=== PATIENT | male | born 1940 | race Caucasian/White ===

== ENCOUNTER → 2019-05-02 09:48 | Outpatient (BNVA) | payer OTHER, SELFPAY | PROVIDERS: Family Provider Family Medicine; PCP Family Medicine; Referring Provider Family Medicine; Visit Provider Psychiatry & Neurology Neurology | DX: G62.9 Polyneuropathy, unspecified (principal); M79.642 Pain in left hand; M79.641 Pain in right hand; Z87.891 Personal history of nicotine dependence; I25.10 Atherosclerotic heart disease of native coronary artery without angina pectoris; Z79.01 Long term (current) use of anticoagulants; Z79.899 Other long term (current) drug therapy | CPT/HCPCS: 80048; 83880; 95885; 95911 ==

== ENCOUNTER 2019-12-24 14:15 | Emergency (ER) | payer OTHER, SELFPAY ==
[2019-12-24 14:40] VITALS: BP 118/66; PULSE 78; RESP 18; TEMP 36.7; O2SAT 96; BMI 48.8
--- NOTE | 2019-12-24 14:59 | W.ED.SKABFB ---
HPI - Skin/Abscess/Foreign Bdy General: Chief complaint: Skin/Abscess/Foreign Body Stated complaint: NEEDLE IN FOOT Time Seen by Provider: 12/24/19 14:21 History of Present Illness: HPI narrative: 79-year-old male patient presents to the emergency department with onset of left foot foreign body. He reports got up in the middle of the night, found blood on the carpet this morning, suffers from peripheral neuropathy secondary to diabetes, he denies pain. Upon inspection, his stated she saw a needle in his foot, he reports currently sewing quilts. States his son and attempted to pull the needle out and not sure if all was retrieved. He reports some tenderness to the left foot. MD complaint: foreign body Onset (ago): hour(s) (24) Tetanus up to date: no Location: L foot Severity: mild Severity scale (1-10): 4 Quality: aching Relieving factors: immobilization and other (foot elevation) Exacerbating factors: other (ambulating) Associated symptoms: Reports no associated symptoms; Deny chills, fever(s), nausea or vomiting Treatments prior to arrival: bandages Review of Systems General: Reports: 10 or more systems reviewed and unremarkable except in HPI and below Const: Denies: fever(s), chills or diaphoresis Eyes: Denies: blurry vision or eye redness ENMT: Denies: throat pain, dental pain or disequilibrium Card: Denies: chest pain, palpitations or irregular heart rhythm Resp: Denies: dyspnea, productive cough, non-productive cough or wheezing GI: Denies: abdominal pain, nausea or vomiting : Denies: dysuria Musc: Reports: other (FB left foot); Denies: neck pain or back pain Skin/Breast: Denies: rash or pruritus Neuro: Denies: headache(s), weakness in extremities or behavioral changes Psych: Denies: anxiety or depression Hong/Lymph: Denies: easy bruising PFSH ED PFSH: Medical History (Updated 12/24/19 @ 16:35 by LUIS ALBERTO Bean) ASHD (arteriosclerotic heart disease) COPD (chronic obstructive pulmonary disease) Diabetes DVT (deep venous thrombosis) Fatty liver History of colon cancer Hyperlipidemia Hypertension Lumbar radiculopathy Metabolic disorder Neuropathy Obesity Onychomycosis Osteoarthritis Prostate cancer Sleep apnea Statin intolerance Surgical History History of hernia repair S/P arthroscopy of left shoulder Status post small bowel resection Family History Other Family history unknown Social History Smoking and tobacco status: former smoker Alcohol intake: never Physical Exam Const: COMMON NORMALS: no acute distress, patient oriented x3, healthy appearing and alert GENERAL APPEARANCE: cooperative, comfortable and well hydrated HENMT: COMMON NORMALS: normocephalic, Normal external nose present and moist oral mucous membranes HEAD & SCALP: normocephalic NOSE: Normal external nose present Eye: COMMON NORMALS: Equal, round and reactive pupils present and EOMs intact bilaterally GENERAL EYE: appearance normal, both eyes and all related structures PUPIL: Yes Equal, round and reactive pupils present Neck/C-Spine: COMMON NORMALS: full ROM and no lymphadenopathy GENERAL: Yes normal visual inspection and Yes trachea midline CERVICAL SPINE: Yes cervical ROM normal Lymph: LYMPHATIC: no lymphadenopathy noted Chest: COMMONS NORMALS: normal inspection of the chest Resp: COMMON NORMALS: normal respiratory effort and clear to auscultation bilaterally AUSCULTATION: clear to auscultation bilaterally Cardio: COMMON NORMALS: regular rhythm, S1 normal heart sound present, S2 normal heart sound present and Peripheral pulses 2+ throughout RHYTHM: regular rhythm HEART SOUNDS: S1 normal heart sound present and S2 normal heart sound present PERIPHERAL PULSES: Peripheral pulses 2+ throughout GI: COMMON NORMALS: Soft to palpation and non-tender INSPECTION: Yes normal to inspection PALPATION: Yes Soft to palpation : COMMON NORMALS: Yes no CVA tenderness BLADDER/KIDNEY EXAM: Yes no CVA tenderness Back/Pelvis: COMMON NORMALS: no CVA tenderness and thoracic and lumbar spine normal to inspection Extremity: COMMON NORMALS: normal to inspection and capillary refill normal GENERAL: Yes normal exam except as noted LEFT LOWER EXTREMITY: Yes foot & digits Left foot and digits: Yes inspection (left distal plantar b/t 2nd-3rd MTP - puncture wound noted), Yes palpation (small abrasion to the puncture site, + tenderness with palpation), Yes ROM (full dorsiflexion/extension of the left foot and ankle) and Yes neurovascular exam (distally intact) Neuro: COMMON NORMALS: patient oriented x3 and no focal motor deficits SENSORIUM/ORIENTATION: Yes alert Psych: COMMON NORMALS: mental status grossly normal, Normal thought process present and cooperative ACTIVITY/MOTOR BEHAVIOR: Yes appropriate eye contact THOUGHT PROCESS: Normal thought process present Skin: COMMON NORMALS: no rashes or lesions noted and turgor normal GENERAL SKIN EXAM: no rashes or lesions noted and turgor normal Course ED course: 79 year old male present with FB left foot - call to Dr Briceno, advised patient to come straight to the clinic for I & D - discussed with patient plan of care - reports will go straight to the clinic so FB can be removed. Aware risk of infection is high and must be followed by podiatry - verbalized understanding. Consultations: Consultation #1: Dr Briceno, podiatry, back with Dr. Briceno in regards to foreign body to the left plantar foot, x-ray results discussed, he advised patient to have colon screening, will be sent to his office for outpatient incision and drainage of the site. Patient remains on anticoagulation, serology testing/coagulation testing deferred at this time. COVID screening requested prior to discharge to the clinic. Time: 16:06 Vital Signs: Vital signs: Vital Signs Temperature 98.0 F 12/24/19 14:40 Pulse Rate 78 12/24/19 14:40 Respiratory Rate 18 12/24/19 14:40 Blood Pressure 118/66 12/24/19 14:40 Pulse Oximetry 96 12/24/19 14:40 MDM - Skin/Abscess/Foreign Bdy Imaging Data^: Xray Ortho: Radiologist's impression: [place] [address] XRay Report Signed Patient: Gage Hampton Unit #: [id number] : 1940 Age/Sex: 79 / M ADM Date: 12/24/19 Loc: ER Room/Bed: Attending Dr: Ordering Provider/Ordering MD: Dot Mcdonald Date of Service: 12/24/19 Procedure(s): XR foot LT min 3V* [id number] Accession Number(s): [id number] Report Number: [id number] PROCEDURE INFORMATION: Exam: XR Left Foot Complete Exam date and time: 12/24/2019 3:28 PM Age: 79 years old Clinical indication: Injury or trauma; Other: Needle in foot; Puncture; Left; With foreign body TECHNIQUE: Imaging protocol: XR Left foot. Views: 3 or more views. COMPARISON: No relevant prior studies available. FINDINGS: Bones/joints: Negative for acute bony abnormality. A bone spurs present on the inferior calcaneus. Soft tissues: There are 3 metallic needle fragments in the plantar surface of the foot inferior to the proximal 2nd digit. These findings are consistent with soft tissue foreign bodies. There is mild soft tissue edema in the dorsal aspect of the foot. XR/XR foot LT min 3V* [id number] IMPRESSION: 1. Metallic needle fragments are present in the plantar surface of the foot 2. No acute bone abnormality. 3. Bone spur inferior calcaneus 4. Mild soft tissue edema dorsal foot Dictated By: Sammy Singh Signed By: Sammy Singh Signed Date/Time: 12/24/191543 DD/ 41 Discharge Plan Discharge Patient Disposition: Home Clinical Impression: Foreign body granuloma of soft tissue of left foot Acute foot pain Qualifiers: Laterality: left Qualified Code(s): M79.672 - Pain in left foot Condition: Stable Prescriptions: No Action metoprolol tartrate 50 mg tablet 50 mg PO BID RF: 0 levothyroxine 50 mcg capsule 50 mcg PO QDAY RF: 0 gabapentin 300 mg capsule 600 mg PO TID RF: 0 glipizide 10 mg tablet 10 mg PO BID RF: 0 polyethylene glycol 3350 [Miralax] 17 gram/dose powder 17 gm PO QDAY RF: 0 diclofenac sodium [Voltaren] 1 % gel 4 gm TOPICAL QID RF: 0 clopidogrel 75 mg tablet 75 mg PO QDAY RF: 0 Biotin Plus-Calcium and Vit D3 200-450-400 mg-mcg-unit tablet PO .twice a day RF: 0 hydralazine 10 mg tablet 10 mg PO TID RF: 0 ranolazine [Ranexa] 500 mg tablet extended release 12 hr 500 mg PO BID RF: 0 magnesium L-lactate 84 mg tablet extended release 84 mg PO BID RF: 0 aspirin [Adult Low Dose Aspirin] 81 mg tablet,delayed release (DR/EC) 81 mg PO QDAY RF: 0 nitroglycerin [Nitrostat] 0.4 mg tablet, sublingual 0.4 mg SUBLINGUAL Q5M PRNRF: 0 pravastatin 80 mg tablet 40 mg PO QDAY RF: 0 warfarin 2 mg tablet 6 mg PO QDAY RF: 0 isosorbide mononitrate 60 mg tablet extended release 24 hr 30 mg PO QDAY RF: 0 sulfamethoxazole-trimethoprim [Bactrim DS] 800-160 mg tablet 1 tab PO Q12H Qty: 14 RF: 0 amoxicillin-pot clavulanate [Augmentin] 875-125 mg tablet 1 tab PO Q12H Qty: 14 RF: 0 furosemide 80 mg tablet 80 mg PO QAM Qty: 90 RF: 3 Discharge Orders: Discharge Order (Routine); Ordered 12/24/19 Ordered By: Dot Mcdonald Referrals: Keven Marcus [Primary Care Provider] - Discharge Diet: Diabetic Discharge Activity: Limit activity as instructed Patient Instructions: Soft Tissue Foreign Body (ED), Puncture Wound (ED) Activity Restrictions/Additional Instructions: Go directly to Dr. Briceno's office to see as soon as you are discharged Keep the left foot elevated to help with pain and swelling If you are prescribed antibiotics, take until all gone Return to the emergency department if you develop red streaking of the left foot, fever, chills or increased leg/foot pain Discharge Date/Time: 12/24/19 16:44 Coding Level of Care Code ED Geothermal Hvac Technician for Kathleen Fwhenry Exam Comprehensive
[2019-12-24] MEDS: tetanus-dipt-pertussis 0.5 mL SDV IM (15:52)
[2019-12-26 12:22] LABS: Quest SARS-CoV-2 RNA NOT DETECTED (NOT DETECTED)
--- NOTE | 2019-12-26 16:52 | PC.NURSE ---
Pt admitted on 12/26/19, called the floor to contact pt regarding COVID results.
== END 2019-12-24 16:44 | disposition home or self-care (01) ==
PROVIDERS: Emergency Provider Nurse Practitioner Family; Family Provider Family Medicine; PCP Family Medicine
DX: M60.272 Foreign body granuloma of soft tissue, not elsewhere classified, left ankle and foot (principal); Z18.9 Retained foreign body fragments, unspecified material; Z79.01 Long term (current) use of anticoagulants; Z79.84 Long term (current) use of oral hypoglycemic drugs; Z79.02 Long term (current) use of antithrombotics/antiplatelets; Z79.82 Long term (current) use of aspirin; J44.9 Chronic obstructive pulmonary disease, unspecified; E11.40 Type 2 diabetes mellitus with diabetic neuropathy, unspecified; Z85.038 Personal history of other malignant neoplasm of large intestine; E78.5 Hyperlipidemia, unspecified; I10 Essential (primary) hypertension; Z85.46 Personal history of malignant neoplasm of prostate; Z87.891 Personal history of nicotine dependence; Z23 Encounter for immunization
CPT/HCPCS: 12345; 73620; 73630; 87070; 87205; 87635; 90471; 90715; 99282; 99283

== ENCOUNTER 2019-12-26 09:11 | Inpatient (IN) | payer OTHER, MEDICARE, SELFPAY ==
[2019-12-26] VITALS (8 sets, daily range): BP systolic 124–165; BP diastolic 72–115; PULSE 80–89; RESP 18; TEMP 36.8–37.3; O2SAT 92–95; BMI 48.8
--- NOTE | 2019-12-26 09:29 | W.ED.GENADLT ---
Documented by User: DANNY Damon 12/26/19 09:50 HPI - General Adult General: Chief complaint: Extremity Injury, Lower Stated complaint: LEFT LEG INFECTION Time Seen by Provider: 12/26/19 09:27 History of Present Illness: HPI narrative: Patient presents here to the ER from Dr. Briceno's office for referral for admission for IV antibiotics due to cellulitis. Patient is diabetic has complete neuropathy and had fragments removed from his foot 2 days ago and then had final fragment removed today has an abscess develop now cellulitis extending to the dorsum of the foot and up the anterior left leg needs to be admitted for empiric therapy per Dr. Goodman PHILLIPS complaint: Diabetic and cellulitis Onset (ago): day(s) Location: lower extremity Radiation: extremity Severity: moderate Relieving factors: none Associated symptoms: Deny chest pain, dyspnea, headache(s), nausea, rash or vomiting Treatments prior to arrival: other (Medicine) Review of Systems Const: Denies: fever(s), chills or body aches Eyes: Denies: change in vision or blurry vision ENMT: Denies: throat pain or nasal congestion Card: Denies: chest pain or dyspnea on exertion Resp: Denies: dyspnea, productive cough or non-productive cough GI: Denies: abdominal pain, nausea or vomiting : Denies: difficulty urinating Musc: Reports: extremity swelling; Denies: extremity pain (Left lower extremity is had 3 sewing needle pieces removed out his foot last [address] Briceno said he got the last 1 out today patient has developed an abscess and now is got swelling stent of into his anterior left leg) Skin/Breast: Denies: rash Neuro: Denies: headache(s) Psych: Denies: anxiety or depression Hong/Lymph: Denies: easy bruising PFSH ED PFSH: Medical History ASHD (arteriosclerotic heart disease) COPD (chronic obstructive pulmonary disease) Diabetes DVT (deep venous thrombosis) Fatty liver History of colon cancer Hyperlipidemia Hypertension Lumbar radiculopathy Metabolic disorder Neuropathy Obesity Onychomycosis Osteoarthritis Prostate cancer Sleep apnea Statin intolerance Surgical History History of hernia repair S/P arthroscopy of left shoulder Status post small bowel resection Family History Other Family history unknown Social History Smoking and tobacco status: former smoker Alcohol intake: never Physical Exam Const: COMMON NORMALS: no acute distress, average body habitus and patient oriented x3 HENMT: COMMON NORMALS: normocephalic HEAD & SCALP: normal to inspection and normocephalic FACE & SINUS: normal facial exam Eye: COMMON NORMALS: conjunctivae normal GENERAL EYE: appearance normal, both eyes and all related structures CONJUNCTIVA: Yes conjunctivae normal Neck/C-Spine: COMMON NORMALS: no JVD Chest: COMMONS NORMALS: normal inspection of the chest Resp: COMMON NORMALS: normal respiratory effort and clear to auscultation bilaterally AUSCULTATION: clear to auscultation bilaterally and diminished lung sounds Cardio: COMMON NORMALS: no JVD, regular rate and regular rhythm RATE: regular rate RHYTHM: regular rhythm GI: COMMON NORMALS: Normal to inspection, nondistended, normoactive bowel sounds present Extremity: COMMON NORMALS: full ROM LEFT LOWER EXTREMITY: Yes lower leg (Redness to anterior tibial aspect Dr. Briceno has placed a edith on it and around the redness) and Yes ankle joint OTHER: Left ankle foot is wrapped per Dr. Briceno who I indeed the foot today removed a piece of metal Neuro: COMMON NORMALS: patient oriented x3 Course Vital Signs: Vital signs: Vital Signs Temperature 97.5 F L 12/29/19 04:00 Pulse Rate 73 12/29/19 04:00 Respiratory Rate 18 12/29/19 04:00 Blood Pressure 153/85 12/29/19 04:00 Pulse Oximetry 94 12/29/19 04:00 MDM - General Adult MDM Narrative: Medical decision making narrative: I received report from Dr. Briceno says 79-year old diabetic male with complete neuropathy left foot is on Bactrim and Augmentin as an outpatient 3 days ago had 2 piece of metal removed from his foot and Dr. Briceno removed another piece today patient has developed an abscess despite being on antibiotics now has redness extending up to anterior aspect of the foot he would like for him to be admitted for IV antibiotics and then have an MRI during for a deep abscess evaluation Lab Data: Labs: Lab Results 12/26/19 12/26/19 12/26/19 Range/Units 09:49 09:49 09:49 WBC 13.6 H (4.0-10.0) 10^3/ uL RBC 5.22 (4.1-5.3) 10^6/u L Hgb 16.4 (11.7-16.6) g/dL Hct 49.0 (42.0-52.0) % MCV 93.9 (80-94) fL MCH 31.4 (28.0-34.0) pg MCHC 33.5 (30.0-36.0) g/dL RDW 13.9 (12.1-15.1) % Plt Count 177 (130-400) 10^3/c mm MPV 11.0 H (7.4-10.4) fL Neut % (Auto) 77.6 % Lymph % (Auto) 13.8 % [place] % (Auto) 7.6 % Eos % (Auto) 0.3 % Baso % (Auto) 0.3 % Neut # (Auto) 10.54 H (1.8-7.7) 10^3/u L Lymph # (Auto) 1.9 (0.8-4.8) 10^3/u L [place] # (Auto) 1.0 H (0.2-0.9) 10^3/u L Eos # (Auto) 0.0 (0.0-0.8) 10^3/u L Baso # (Auto) 0.0 (0.0-0.1) 10^3/u L Nucleated RBC % (a uto) 0 % Nucleated RBCs # 0.0 /100WBC PT 28.80 H (12.1-14.9) SECO NDS INR 2.60 H (0.8-1.2) Sodium 131 L (136-145) mmol/L Potassium 4.1 (3.5-5.1) mmol/L Chloride 99 (98-107) mmol/L Carbon Dioxide 22 (22-29) mmol/L Anion Gap 14.1 (5-19) BUN 21 (8-23) mg/dL Creatinine 1.6 H (0.7-1.2) mg/dL GFR Calculation Not Reportable Glucose 180 H (65-115) mg/dL Estimat Average Gl ucose Hemoglobin A1c (4.0-6.0) % Calculated Osmolal ity 280 L (285-295) mOsm/k g Lactate (0.5-2.2) mmol/L Calcium 8.8 (8.5-10.5) mg/dL Total Bilirubin 0.9 (0.15-1.2) mg/dL AST 13 (0-40) U/L ALT 14 (0-41) U/L Alkaline Phosphata se 63 (40-130) IU/L Total Protein 7.2 (6.6-8.7) g/dL Albumin 3.7 (3.5-5.2) g/dL Globulin 3.5 (1.3-4.6) g/dL SARS-CoV-2 Ag (Rap id) (Negative) 12/26/19 12/26/19 12/26/19 Range/Units 09:49 09:49 10:17 WBC (4.0-10.0) 10^3/ uL RBC (4.1-5.3) 10^6/u L Hgb (11.7-16.6) g/dL Hct (42.0-52.0) % MCV (80-94) fL MCH (28.0-34.0) pg MCHC (30.0-36.0) g/dL RDW (12.1-15.1) % Plt Count (130-400) 10^3/c mm MPV (7.4-10.4) fL Neut % (Auto) % Lymph % (Auto) % [place] % (Auto) % Eos % (Auto) % Baso % (Auto) % Neut # (Auto) (1.8-7.7) 10^3/u L Lymph # (Auto) (0.8-4.8) 10^3/u L [place] # (Auto) (0.2-0.9) 10^3/u L Eos # (Auto) (0.0-0.8) 10^3/u L Baso # (Auto) (0.0-0.1) 10^3/u L Nucleated RBC % (a uto) % Nucleated RBCs # /100WBC PT (12.1-14.9) SECO NDS INR (0.8-1.2) Sodium (136-145) mmol/L Potassium (3.5-5.1) mmol/L Chloride (98-107) mmol/L Carbon Dioxide (22-29) mmol/L Anion Gap (5-19) BUN (8-23) mg/dL Creatinine (0.7-1.2) mg/dL GFR Calculation Glucose (65-115) mg/dL Estimat Average Gl ucose 126 Hemoglobin A1c 6.0 (4.0-6.0) % Calculated Osmolal ity (285-295) mOsm/k g Lactate 1.7 (0.5-2.2) mmol/L Calcium (8.5-10.5) mg/dL Total Bilirubin (0.15-1.2) mg/dL AST (0-40) U/L ALT (0-41) U/L Alkaline Phosphata se (40-130) IU/L Total Protein (6.6-8.7) g/dL Albumin (3.5-5.2) g/dL Globulin (1.3-4.6) g/dL SARS-CoV-2 Ag (Rap id) Negative (Negative) Discharge Plan Discharge Patient Disposition: Admitted As Inpatient Admit Provider: Denise Murcia Clinical Impression: Cellulitis, Diabetic peripheral neuropathy associated with type 2 diabetes mellitus, ASHD (arteriosclerotic heart disease), Diabetes, Hypertension Condition: Stable Interventions: ED Discharge Assessment Last Done: 12/26/19 14:49 ED Charges Last Done: 12/26/19 14:49 Discharge Date/Time: 12/26/19 15:09 Sign Out Sign Out Data: Patient Sign Out occurred on 12/26/19 at 13:53. Patient's care was discussed, and care was transferred from to Denny Douglas DO. 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 [employer]g Fwd Exam Comprehensive Documented by User: Denny Douglas DO 12/29/19 05:34 HPI - General Adult General: Chief complaint: Extremity Injury, Lower Stated complaint: LEFT LEG INFECTION Time Seen by Provider: 12/26/19 09:27 REPLACED BY [facility] ED PFSH: Medical History ASHD (arteriosclerotic heart disease) COPD (chronic obstructive pulmonary disease) Diabetes DVT (deep venous thrombosis) Fatty liver History of colon cancer Hyperlipidemia Hypertension Lumbar radiculopathy Metabolic disorder Neuropathy Obesity Onychomycosis Osteoarthritis Prostate cancer Sleep apnea Statin intolerance Surgical History History of hernia repair S/P arthroscopy of left shoulder Status post small bowel resection Family History Other Family history unknown Social History Smoking and tobacco status: former smoker Alcohol intake: never Course Vital Signs: Vital signs: Vital Signs Temperature 97.5 F L 12/29/19 04:00 Pulse Rate 73 12/29/19 04:00 Respiratory Rate 18 12/29/19 04:00 Blood Pressure 153/85 12/29/19 04:00 Pulse Oximetry 94 12/29/19 04:00 MDM - General Adult MDM Narrative: Medical decision making narrative: Reviewed with FILI Damon. Patient will be admitted for IV antibiotics popsicles surgical debridement. Discussed with hospitalist they will accept orders are written. Lab Data: Labs: Lab Results 12/26/19 12/26/19 12/26/19 Range/Units 09:49 09:49 09:49 WBC 13.6 H (4.0-10.0) 10^3/ uL RBC 5.22 (4.1-5.3) 10^6/u L Hgb 16.4 (11.7-16.6) g/dL Hct 49.0 (42.0-52.0) % MCV 93.9 (80-94) fL MCH 31.4 (28.0-34.0) pg MCHC 33.5 (30.0-36.0) g/dL RDW 13.9 (12.1-15.1) % Plt Count 177 (130-400) 10^3/c mm MPV 11.0 H (7.4-10.4) fL Neut % (Auto) 77.6 % Lymph % (Auto) 13.8 % [place] % (Auto) 7.6 % Eos % (Auto) 0.3 % Baso % (Auto) 0.3 % Neut # (Auto) 10.54 H (1.8-7.7) 10^3/u L Lymph # (Auto) 1.9 (0.8-4.8) 10^3/u L [place] # (Auto) 1.0 H (0.2-0.9) 10^3/u L Eos # (Auto) 0.0 (0.0-0.8) 10^3/u L Baso # (Auto) 0.0 (0.0-0.1) 10^3/u L Nucleated RBC % (a uto) 0 % Nucleated RBCs # 0.0 /100WBC PT 28.80 H (12.1-14.9) SECO NDS INR 2.60 H (0.8-1.2) Sodium 131 L (136-145) mmol/L Potassium 4.1 (3.5-5.1) mmol/L Chloride 99 (98-107) mmol/L Carbon Dioxide 22 (22-29) mmol/L Anion Gap 14.1 (5-19) BUN 21 (8-23) mg/dL Creatinine 1.6 H (0.7-1.2) mg/dL GFR Calculation Not Reportable Glucose 180 H (65-115) mg/dL Estimat Average Gl ucose Hemoglobin A1c (4.0-6.0) % Calculated Osmolal ity 280 L (285-295) mOsm/k g Lactate (0.5-2.2) mmol/L Calcium 8.8 (8.5-10.5) mg/dL Total Bilirubin 0.9 (0.15-1.2) mg/dL AST 13 (0-40) U/L ALT 14 (0-41) U/L Alkaline Phosphata se 63 (40-130) IU/L Total Protein 7.2 (6.6-8.7) g/dL Albumin 3.7 (3.5-5.2) g/dL Globulin 3.5 (1.3-4.6) g/dL SARS-CoV-2 Ag (Rap id) (Negative) 12/26/19 12/26/19 12/26/19 Range/Units 09:49 09:49 10:17 WBC (4.0-10.0) 10^3/ uL RBC (4.1-5.3) 10^6/u L Hgb (11.7-16.6) g/dL Hct (42.0-52.0) % MCV (80-94) fL MCH (28.0-34.0) pg MCHC (30.0-36.0) g/dL RDW (12.1-15.1) % Plt Count (130-400) 10^3/c mm MPV (7.4-10.4) fL Neut % (Auto) % Lymph % (Auto) % [place] % (Auto) % Eos % (Auto) % Baso % (Auto) % Neut # (Auto) (1.8-7.7) 10^3/u L Lymph # (Auto) (0.8-4.8) 10^3/u L [place] # (Auto) (0.2-0.9) 10^3/u L Eos # (Auto) (0.0-0.8) 10^3/u L Baso # (Auto) (0.0-0.1) 10^3/u L Nucleated RBC % (a uto) % Nucleated RBCs # /100WBC PT (12.1-14.9) SECO NDS INR (0.8-1.2) Sodium (136-145) mmol/L Potassium (3.5-5.1) mmol/L Chloride (98-107) mmol/L Carbon Dioxide (22-29) mmol/L Anion Gap (5-19) BUN (8-23) mg/dL Creatinine (0.7-1.2) mg/dL GFR Calculation Glucose (65-115) mg/dL Estimat Average Gl ucose 126 Hemoglobin A1c 6.0 (4.0-6.0) % Calculated Osmolal ity (285-295) mOsm/k g Lactate 1.7 (0.5-2.2) mmol/L Calcium (8.5-10.5) mg/dL Total Bilirubin (0.15-1.2) mg/dL AST (0-40) U/L ALT (0-41) U/L Alkaline Phosphata se (40-130) IU/L Total Protein (6.6-8.7) g/dL Albumin (3.5-5.2) g/dL Globulin (1.3-4.6) g/dL SARS-CoV-2 Ag (Rap id) Negative (Negative) Discharge Plan Discharge Patient Disposition: Admitted As Inpatient Admit Provider: Denise Murcia Clinical Impression: Cellulitis, Diabetic peripheral neuropathy associated with type 2 diabetes mellitus, ASHD (arteriosclerotic heart disease), Diabetes, Hypertension Condition: Stable Interventions: ED Discharge Assessment Last Done: 12/26/19 14:49 ED Charges Last Done: 12/26/19 14:49 Discharge Date/Time: 12/26/19 15:09 Sign Out Sign Out Data: Patient Sign Out occurred on 12/26/19 at 13:53. Patient's care was discussed, and care was transferred from to Denny Douglas DO. 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
[2019-12-26 09:59] LABS: Basophils % 0.3 %; Eosinophils % 0.3 %; Hemoglobin 16.4 g/dL (11.7-16.6); Lymphocytes # 1.9 10^3/uL (0.8-4.8); Lymphocytes % 13.8 %; Mean Corpuscular HGB Conc 33.5 g/dL (30.0-36.0); Mean Corpuscular Hemoglobin 31.4 pg (28.0-34.0); Mean Corpuscular Volume 93.9 fL (80-94); Monocytes % 7.6 %; Neutrophils # 10.54 10^3/uL (1.8-7.7); Neutrophils % 77.6 %; Nucleated Red Blood Cells % 0 %; Platelet Count 177 10^3/cmm (130-400); Red Blood Count 5.22 10^6/uL (4.1-5.3); Red Cell Distribution Width 13.9 % (12.1-15.1); White Blood Count 13.6 10^3/uL (4.0-10.0)
[2019-12-26 10:19] LABS: Lactate (Lactic Acid level) 1.7 mmol/L (0.5-2.2)
[2019-12-26] MEDS: sodium chloride 0.9% 1,000 ML 75 ML IV (10:19)
[2019-12-26 10:22] LABS: Alanine Aminotransferase 14 U/L (0-41); Albumin Level 3.7 g/dL (3.5-5.2); Alkaline Phosphatase 63 IU/L (40-130); Anion Gap 14.1 (5-19); Aspartate Amino Transferase 13 U/L (0-40); Blood Urea Nitrogen 21 mg/dL (8-23); Calcium 8.8 mg/dL (8.5-10.5); Carbon Dioxide 22 mmol/L (22-29); Chloride 99 mmol/L (98-107); Globulin 3.5 g/dL (1.3-4.6); Glucose 180 mg/dL (65-115); Osmolality Calculated 280 mOsm/kg (285-295); Potassium 4.1 mmol/L (3.5-5.1); Sodium 131 mmol/L (136-145); Total Bilirubin 0.9 mg/dL (0.15-1.2); Total Protein 7.2 g/dL (6.6-8.7)
[2019-12-26 11:31] LABS: SARS Covid-2 Antigen Negative (Negative)
--- NOTE | 2019-12-26 11:55 | XR_ITS ---
WS: [id number] Portable AP upright chest, 12/26/2019 Clinical Data: cellulitis Comparison: Portable chest, 11/19/2018. Findings: No nodules, masses or effusions are seen. The heart is enlarged. The pulmonary vascularity is not increased. No pneumonia or pneumothorax is seen. The aortic arch and descending aorta show teresa cification and tortuosity. There is blunting of both costophrenic angles unchanged. XR/XR chest 1V portable [id number] Impression: Atherosclerosis and cardiomegaly.
--- NOTE | 2019-12-26 11:55 | ECG_ITS ---
[facility] Test Date: 2019-12-26 Pat Name: Gage Hampton Department: Room: Gender: Male Wellness Consultant: : 1940 Requested By: Stephen Rosa Order Number: [id number] Zaria MD: Brii Haas M.D. Measurements Intervals [place] Rate: 92 P: PA: -1 QRS: 95 QRSD: 114 T: 52 QT: 374 QTc: 463 Interpretive Statements ATRIAL FIBRILLATION BORDERLINE RIGHT AXIS DEVIATION [QRS AXIS > 90] MODERATE INTRAVENTRICULAR CONDUCTION DELAY [110+ ms QRS DURATION] Compared to ECG 11/19/2018 19:03:33 Intraventricular conduction delay now present Electronically Signed On 12-26-2019 17:53:59 CDT by Brii Haas M.D. [id number]
[2019-12-26] MEDS: levofloxacin-dextrose 5 % 500 MG/100 ML PREMIX 100 MG IV (12:38)
[2019-12-26] MEDS: sodium chloride 0.9% 1,000 ML 100 ML IV (16:12)
--- NOTE | 2019-12-26 16:14 | P.HP_ITS ---
Providers/Chief Complaint Admitting Physician: Denise Murcia MD Primary Care Provider: Keven Marcus Chief Complaint: LEFT LEG INFECTION History of Present Illness Gage Hampton is a 79 year old male with PMH CAD s/p PCI in 2005, 2012 and 2018, COPD on home O2, diabetes mellitus, hyperlipidemia, history of colon cancer, hypertension, hypothyroidism, peripheral neuropathy, obesity, osteoarthritis, prostate cancer, sleep apnea who developed left foot injury after stepping on a needle on December 23. He presented to see Dr. Briceno on the same date and a large body was removed in 2 places. Also started on Augmentin and Bactrim for cellulitis. Went back and had increased, cellulitis of the left dorsal forefoot which was extended into the left anterior leg. The remaining part of the needle was removed today. Sent for Gram stain and culture. No remaining foreign body appreciated. He was referred to the ER as he failed outpatient antibiotics and to get an MRI to establish depth of infection and to rule out any underlying deep abscesses. Review of Systems General: Reports: 10 or more systems reviewed and unremarkable except in HPI and below Const: Denies: fever(s), chills or body aches Eyes: Denies: change in vision, blurry vision or photophobia ENMT: Reports: hoarseness; Denies: throat pain, enlarged tonsils, odynophagia or nasal congestion Card: Denies: chest pain, palpitations, irregular heart rhythm, edema, swelling of feet/ankles, lightheadedness, pre-syncope, dyspnea on exertion or orthopnea Resp: Denies: dyspnea, productive cough, non-productive cough, wheezing, stridor, pain on inspiration, change in phlegm color, hemoptysis or chest conges tion GI: Denies: abdominal pain, nausea, vomiting, hematemesis, coffee ground emesis, dysphagia, heartburn, diarrhea, constipation, GI cramping, change in stool character, hematochezia or melena : Denies: flank pain, dysuria, urinary frequency, urinary urgency, urinary hesitancy or hematuria Musc: Denies: neck pain, back pain, extremity pain, joint swelling, joint warmth or deformity Neuro: Denies: headache(s), numbness in extremities, weakness in extremities, sensory changes, difficulty walking, frequent falls, dizziness, vertigo, behavioral changes, Slurred speech present or seizure-like activity Psych: Denies: anxiety, depression, suicidal ideation or homicidal ideation Endo: Denies: polyuria, polydipsia, tired all the time, cold intolerance or hot flashes Hong/Lymph: Denies: easy bruising or easy bleeding Medications/Allergies Home Medications Medication Instructions Recorded Confirmed Last Taken Type aspirin 81 mg tablet,delayed 81 mg PO DAILY 03/27/19 12/26/19 12/26/19 History release clopidogrel 75 mg tablet 75 mg PO DAILY 03/27/19 12/26/19 12/25/19 History diclofenac sodium 1 % topical gel 4 gm TOPICAL QID 03/27/19 12/26/19 Unknown History gabapentin 300 mg capsule 600 mg PO TID cap 03/27/19 12/26/19 12/26/19 History glipizide 10 mg tablet 10 mg PO BID 03/27/19 12/26/19 12/26/19 History hydralazine 10 mg tablet 10 mg PO TID 03/27/19 12/26/19 12/26/19 History isosorbide mononitrate 60 mg 30 mg PO DAILY tab 03/27/19 12/26/19 12/26/19 History tablet,extended release 24 hr levothyroxine 50 mcg capsule 50 mcg PO DAILY 03/27/19 12/26/19 Unknown History magnesium L-lactate 84 mg 84 mg PO BID 03/27/19 12/26/19 12/26/19 History tablet,extended release metoprolol tartrate 50 mg tablet 50 mg PO BID 03/27/19 12/26/19 12/26/19 History [id number]-[id number] 200 1 tab PO BID tab 03/27/19 12/26/19 12/26/19 History mg-biotin 450 mcg-vit D3 400 unit-FA tablet nitroglycerin 0.4 mg sublingual 0.4 mg SUBLINGUAL Q5M PRN 03/27/19 12/26/19 Unknown History tablet polyethylene glycol 3350 17 17 gm PO DAILY 03/27/19 12/26/19 12/25/19 History gram/dose oral powder pravastatin 80 mg tablet 40 mg PO DAILY tab 03/27/19 12/26/19 12/25/19 History ranolazine 500 mg tablet,extended 500 mg PO BID 03/27/19 12/26/19 12/26/19 History release,12 hr warfarin 2 mg tablet 6 mg PO DAILY tab 03/27/19 12/26/19 12/26/19 History furosemide 80 mg tablet 80 mg PO QAM #90 tab 05/27/19 12/26/19 12/26/19 Rx amoxicillin 875 mg-potassium 1 tab PO Q12H #14 tab 12/24/19 12/26/19 12/26/19 Rx clavulanate 125 mg tablet cholecalciferol (vitamin D3) 50 mcg PO DAILY 12/26/19 12/26/19 12/26/19 History [Vitamin D3] duloxetine 40 mg PO DAILY 12/26/19 12/26/19 12/25/19 History empagliflozin [Jardiance] 12.5 mg PO DAILY 12/26/19 12/26/19 12/26/19 History ferrous gluconate 324 mg PO DAILY 12/26/19 12/26/19 12/26/19 History omeprazole 20 mg PO DAILY 12/26/19 12/26/19 12/26/19 History Allergies Allergy/AdvReac Type Severity Reaction Status Date / Time lovastatin Allergy Unknown unknown Verified 12/26/19 08:02 metformin Allergy Unknown diarrhea Verified 12/26/19 08:02 rosuvastatin [From Crestor] Allergy Unknown unknown Verified 12/26/19 08:02 PFSH Acute PFSH: Medical History ASHD (arteriosclerotic heart disease) COPD (chronic obstructive pulmonary disease) Diabetes DVT (deep venous thrombosis) Fatty liver History of colon cancer Hyperlipidemia Hypertension Lumbar radiculopathy Metabolic disorder Neuropathy Obesity Onychomycosis Osteoarthritis Prostate cancer Sleep apnea Statin intolerance Surgical History History of hernia repair S/P arthroscopy of left shoulder Status post small bowel resection Family History Other Family history unknown Social History Smoking and tobacco status: former smoker Alcohol intake: never Vitals/I&O/Wt Last Vital Signs Temp 99.2 F 12/26/19 16:00 Pulse 87 12/26/19 16:00 Resp 18 12/26/19 16:00 BP 147/87 12/26/19 16:00 Pulse Ox 92 12/26/19 16:00 Weight last 48 hrs Weight 158.757 kg Physical Exam Const: COMMON NORMALS: no acute distress, average body habitus, patient oriented x3, no limitations, healthy appearing, alert and well nourished HENMT: COMMON NORMALS: normocephalic and atraumatic HEAD & SCALP: normocephalic and atraumatic Eye: COMMON NORMALS: Equal, round and reactive pupils present, EOMs intact bilaterally, conjunctivae normal and no scleral icterus CONJUNCTIVA: Yes conjunctivae normal PUPIL: Yes Equal, round and reactive pupils present Neck/C-Spine: COMMON NORMALS: no JVD Resp: COMMON NORMALS: normal respiratory effort, No retractions, No use of accessory muscles, clear to auscultation bilaterally and percussion normal AUSCULTATION: clear to auscultation bilaterally PERCUSSION: percussion normal Cardio: COMMON NORMALS: no JVD, regular rate, regular rhythm, S1 normal heart sound present, S2 normal heart sound present, No gallops present (Cardio), No clicks present (Cardio), No murmurs present (Cardio), No rub (Cardio) and Peripheral pulses 2+ throughout RATE: regular rate RHYTHM: regular rhythm HEART SOUNDS: S1 normal heart sound present and S2 normal heart sound present PERIPHERAL PULSES: Peripheral pulses 2+ throughout GI: COMMON NORMALS: Normal to inspection, nondistended, normoactive bowel sounds present, Soft to palpation, non-tender, No hepatosplenomegaly present, no masses and no bruits PALPATION: Yes Soft to palpation and Yes No hepatosplenomegaly present Extremity: COMMON NORMALS: normal to inspection, full ROM, capillary refill normal, no joint enlargement, no clubbing, cyanosis or edema, no calf tenderness and no pedal edema Neuro: COMMON NORMALS: patient oriented x3, CN's II-XII intact bilaterally, moves all extremities, no focal motor deficits, no sensory deficits noted, deep tendon reflexes 2+ bilaterally and gait normal SENSORIUM/ORIENTATION: Yes alert Psych: COMMON NORMALS: mental status grossly normal, Normal thought process present, cooperative, normal affect, speech normal, activity/motor behavior normal, denies hallucinations, denies homicidal ideation and denies suicidal ideation SPEECH: Yes normal speech THOUGHT PROCESS: Normal thought process present Skin: COMMON NORMALS: no rashes or lesions noted, no wounds, turgor normal, no jaundice, no petechiae and no mottling GENERAL SKIN EXAM: no rashes or lesions noted and turgor normal Data : 12/27/19 04:02 12/27/19 04:02 Micro: Microbiology 12/26/19 09:52 Blood Culture - Preliminary Blood SPECIMEN COLLECTED 12/26/19 09:49 Blood Culture - Preliminary Blood SPECIMEN COLLECTED A&P Assessment and plan (1) Cellulitis: Status: Acute Qualifiers: Site of cellulitis: other site Qualified Code(s): L03.818 - Cellulitis of other sites (2) Foreign body in foot, left: Status: Acute Qualifiers: Encounter type: initial encounter Qualified Code(s): S90.852A - Superficial foreign body, left foot, initial encounter (3) Diabetic peripheral neuropathy associated with type 2 diabetes mellitus: Status: Acute (4) Hypertension: Status: Acute Qualifiers: Hypertension type: essential hypertension Qualified Code(s): I10 - Essential (primary) hypertension (5) Sleep apnea: Status: Acute Qualifiers: Sleep apnea type: obstructive Qualified Code(s): G47.33 - Obstructive sleep apnea (adult) (pediatric) (6) Hyperlipidemia: Status: Acute Qualifiers: Hyperlipidemia type: mixed hyperlipidemia Qualified Code(s): E78.2 - Mixed hyperlipidemia (7) ASHD (arteriosclerotic heart disease): Status: Acute (8) Sleep apnea: Status: Acute Qualifiers: Sleep apnea type: unspecified type Qualified Code(s): G47.30 - Sleep apnea, unspecified Additional A&P Information 79-year-old male with multiple comorbidities as above presenting today for cellulitis which has developed after foreign body trauma on the from needles. #Cellulitis of the left forefoot: Patient was on Augmentin and Bactrim as an outpatient with progression of cellulitis Start Zosyn and Vancomycin empirically. # DM: high dose insulin sliding scale #HTN: continue home medications # h/o anticoagulation, INR currently 2.6, hold coumadin for now in case any procedures anticipated Continue ASA # CAD: continue ASA, metoprolol , imdur, ranexa, statins # continue home dose of cymbalta, gabapentin DVT ppx: INR 2.6 currently Full code Attestations Medical Necessity Statement*: > 2 Mn admission for need for iv abx for progressive cellulitis, outpatient abx failure, MRI, podiatry assessment Coding Level of Care Code Acute Booster Plant Operator for Chg Fwd Exam Comprehensive Diagnoses Cellulitis L03.818 Site of cellulitis: other site Foreign body in foot, left S90.850O Encounter type: initial encounter Diabetic peripheral neuropathy associated with type 2 diabetes mellitus E11.42 Hypertension I10 Hypertension type: essential hypertension Sleep apnea G47.33 Sleep apnea type: obstructive Hyperlipidemia E78.2 Hyperlipidemia type: mixed hyperlipidemia ASHD (arteriosclerotic heart disease) I25.10 Sleep apnea G47.30 Sleep apnea type: unspecified type
[2019-12-26 16:39] LABS: Estmated Average Glucose 126
[2019-12-26] MEDS: diclofenac 1% Topical Gel 100 gm TOPICAL ×2 (16:59→21:33)
[2019-12-26] MEDS: piperacillin-tazobactam 3.375 GM in sodium chloride 0.9% (plus) 50 ML IV (17:00)
[2019-12-26] MEDS: ranolazine (12HR) 500 mg Tablet PO (17:01)
[2019-12-26] MEDS: metoprolol tartrate 50 mg Tablet PO (17:01)
[2019-12-26 17:17] LABS: Glucose Point of Care 160 mg/dL (70-110)
--- NOTE | 2019-12-26 17:58 | PC.NURSE ---
Patient reports he has his own CPAP machine and will have family bring it up tomorrow.
[2019-12-26 20:41] LABS: Glucose Point of Care 184 mg/dL (70-110)
[2019-12-26] MEDS: hyDRALAzine 10 mg Tablet PO (21:12)
[2019-12-26] MEDS: gabapentin 300 mg Capsule 600 MG PO (21:12)
--- NOTE | 2019-12-26 21:17 | XRR_ITS ---
PROCEDURE INFORMATION: Exam: XR Left Foot Complete Exam date and time: 12/26/2019 9:37 PM Age: 79 years old Clinical indication: Injury or trauma; Other: Stepped on foreign object; Puncture; Foot; Left; With foreign body; Additional info: S/P foreign body removal TECHNIQUE: Imaging protocol: XR Left foot. Views: 3 or more views. COMPARISON: CR XR foot LT min 3V* [id number] 12/24/2019 3:14 PM FINDINGS: Bones/joints: No visible acute osseous abnormality. Small heel spur. Soft tissues: No visible radiopaque foreign body. Arteriosclerosis. XR/XR foot LT min 3V* [id number] IMPRESSION: No acute findings.
[2019-12-27] VITALS (7 sets, daily range): BP systolic 112–136; BP diastolic 68–89; PULSE 72–96; RESP 18; TEMP 36.4–37.1; O2SAT 91–96
[2019-12-27] MEDS: piperacillin-tazobactam 3.375 GM in sodium chloride 0.9% (plus) 50 ML IV ×2 (03:21→11:29)
[2019-12-27 05:19] LABS: Basophils % 0.4 %; Eosinophils # 0.1 10^3/uL (0.0-0.8); Hematocrit 47.5 % (42.0-52.0); Hemoglobin 15.4 g/dL (11.7-16.6); Lymphocytes % 20.6 %; Mean Corpuscular HGB Conc 32.4 g/dL (30.0-36.0); Mean Corpuscular Hemoglobin 30.9 pg (28.0-34.0); Mean Corpuscular Volume 95.2 fL (80-94); Monocytes # 0.9 10^3/uL (0.2-0.9); Monocytes % 9.1 %; Neutrophils # 6.63 10^3/uL (1.8-7.7); Neutrophils % 68.5 %; Nucleated Red Blood Cells % 0 %; Platelet Count 174 10^3/cmm (130-400); Red Blood Count 4.99 10^6/uL (4.1-5.3); Red Cell Distribution Width 13.9 % (12.1-15.1); White Blood Count 9.7 10^3/uL (4.0-10.0)
[2019-12-27 05:32] LABS: INR 2.38 (0.8-1.2)
[2019-12-27 05:40] LABS: Alanine Aminotransferase 11 U/L (0-41); Albumin Level 3.1 g/dL (3.5-5.2); Alkaline Phosphatase 55 IU/L (40-130); Aspartate Amino Transferase 14 U/L (0-40); Blood Urea Nitrogen 20 mg/dL (8-23); Calcium 8.8 mg/dL (8.5-10.5); Carbon Dioxide 20 mmol/L (22-29); Chloride 103 mmol/L (98-107); Globulin 3.6 g/dL (1.3-4.6); Glucose 136 mg/dL (65-115); Osmolality Calculated 279 mOsm/kg (285-295); Sodium 132 mmol/L (136-145); Total Bilirubin 0.8 mg/dL (0.15-1.2); Total Protein 6.7 g/dL (6.6-8.7)
[2019-12-27 06:41] LABS: Glucose Point of Care 130 mg/dL (70-110)
[2019-12-27] MEDS: FUROsemide 40 mg Tablet 80 MG PO (06:53)
--- NOTE | 2019-12-27 08:13 | P.CONIM_ITS ---
Providers/Reason For Consult Consulting Physican/Specialty*: Jose Guadalupe Briceno D.P.M. Reason for Consult*: Diabetic foot infection with cellulitis left foot secondary to foreign body puncture wound Attending Physician: Denise Murcia MD Primary Care Provider: Keven Marcus History of Present Illness History of Present Illness Gage Hampton is a 79 year old diabetic male whom I referred to the emergency department for admission for empiric IV antibiotics and MRI of his left foot. Patient stepped on a sewing needle on 12/24/2019 and promptly reported to the emergency department, I was consulted and saw him in podiatry clinic for I&D and foreign body removal, 2 out of 3 metallic fragments were removed on Sunday, he was started on Bactrim and Augmentin, followed up in podiatry clinic 2 days later 12/26/2019, second attempt for remaining foreign body was successful unfortunately he demonstrated increased tenderness, edema and cellulitis to the left foot streaking to the anterior leg. He was agreeable to present to the emergency department for admission to the hospital service. Review of Systems General: Reports: 10 or more systems reviewed and unremarkable except in HPI and below Const: Denies: fever(s) or chills Card: Denies: chest pain or palpitations Resp: Denies: productive cough GI: Denies: abdominal pain, nausea or vomiting : Denies: flank pain Musc: Reports: extremity swelling, joint pain, joint stiffness, limited range of motion and deformity Skin/Breast: Reports: erythema, sores, surgical incision, nail changes and change in hair; Denies: rash Neuro: Reports: numbness in extremities, sensory changes and difficulty walking Psych: Denies: suicidal ideation Hong/Lymph: Denies: easy bruising Meds/Allergies Home Medications and Allergies Home Medications Medication Instructions Recorded Confirmed Last Taken Type aspirin 81 mg tablet,delayed 81 mg PO DAILY 03/27/19 12/26/19 12/26/19 History release clopidogrel 75 mg tablet 75 mg PO DAILY 03/27/19 12/26/19 12/25/19 History diclofenac sodium 1 % topical gel 4 gm TOPICAL QID 03/27/19 12/26/19 Unknown History gabapentin 300 mg capsule 600 mg PO TID cap 03/27/19 12/26/19 12/26/19 History glipizide 10 mg tablet 10 mg PO BID 03/27/19 12/26/19 12/26/19 History hydralazine 10 mg tablet 10 mg PO TID 03/27/19 12/26/19 12/26/19 History isosorbide mononitrate 60 mg 30 mg PO DAILY tab 03/27/19 12/26/19 12/26/19 History tablet,extended release 24 hr levothyroxine 50 mcg capsule 50 mcg PO DAILY 03/27/19 12/26/19 Unknown History magnesium L-lactate 84 mg 84 mg PO BID 03/27/19 12/26/19 12/26/19 History tablet,extended release metoprolol tartrate 50 mg tablet 50 mg PO BID 03/27/19 12/26/19 12/26/19 History yzexnclr-hkxd-vjnspcy 200 1 tab PO BID tab 03/27/19 12/26/19 12/26/19 History mg-biotin 450 mcg-vit D3 400 unit-FA tablet nitroglycerin 0.4 mg sublingual 0.4 mg SUBLINGUAL Q5M PRN 03/27/19 12/26/19 Unknown History tablet polyethylene glycol 3350 17 17 gm PO DAILY 03/27/19 12/26/19 12/25/19 History gram/dose oral powder pravastatin 80 mg tablet 40 mg PO DAILY tab 03/27/19 12/26/19 12/25/19 History ranolazine 500 mg tablet,extended 500 mg PO BID 03/27/19 12/26/19 12/26/19 History release,12 hr warfarin 2 mg tablet 6 mg PO DAILY tab 03/27/19 12/26/19 12/26/19 History furosemide 80 mg tablet 80 mg PO QAM #90 tab 05/27/19 12/26/19 12/26/19 Rx amoxicillin 875 mg-potassium 1 tab PO Q12H #14 tab 12/24/19 12/26/19 12/26/19 Rx clavulanate 125 mg tablet cholecalciferol (vitamin D3) 50 mcg PO DAILY 12/26/19 12/26/19 12/26/19 History [Vitamin D3] duloxetine 40 mg PO DAILY 12/26/19 12/26/19 12/25/19 History empagliflozin [Jardiance] 12.5 mg PO DAILY 12/26/19 12/26/19 12/26/19 History ferrous gluconate 324 mg PO DAILY 12/26/19 12/26/19 12/26/19 History omeprazole 20 mg PO DAILY 12/26/19 12/26/19 12/26/19 History Allergies Allergy/AdvReac Type Severity Reaction Status Date / Time lovastatin Allergy Unknown unknown Verified 12/26/19 08:02 metformin Allergy Unknown diarrhea Verified 12/26/19 08:02 rosuvastatin [From Crestor] Allergy Unknown unknown Verified 12/26/19 08:02 Current Medications Current Medications Generic Name Dose Route Start Last Admin Trade Name Freq PRN Reason Stop Dose Admin Diclofenac Sodium 0 applic 12/26/19 17:00 12/26/19 21:33 Voltaren TOPICAL 4 gm QID CHARLA Administration Furosemide 80 mg 12/27/19 06:00 12/27/19 06:53 Lasix PO 80 mg QAM CHARLA Administration Gabapentin 600 mg 12/26/19 21:00 12/26/19 21:12 Neurontin PO 600 mg TID CHARLA Administration Hydralazine HCl 10 mg 12/26/19 21:00 12/26/19 21:12 Apresoline PO 10 mg TID CHARLA Administration Sodium Chloride 1,000 mls @ 100 mls/hr 12/26/19 15:41 12/26/19 16:12 Sodium Chloride 0.9% IV 100 mls/hr .Q10H CHARLA Administration Piperacillin Sod/Tazobactam 50 mls @ 12.5 mls/hr 12/26/19 17:00 12/27/19 03:21 Sod 3.375 gm/ Sodium Chloride IV 12.5 mls/hr Q8H CHARLA Administration Vancomycin HCl 2,000 mg/ 500 mls @ 250 mls/hr 12/26/19 21:00 12/26/19 21:16 Sodium Chloride IV 250 mls/hr Q24H CHARLA Administration Insulin Aspart 0 unit 12/26/19 18:00 12/26/19 21:12 Novolog SUBCUT 6 unit WM&BEDTIME CHARLA Administration Protocol Metoprolol Tartrate 50 mg 12/26/19 18:00 12/26/19 17:01 Lopressor PO 50 mg BID CHARLA Administration Ranolazine 500 mg 12/26/19 18:00 12/26/19 17:01 Ranexa PO 500 mg BID CHARLA Administration PFSH Acute PFSH: Medical History ASHD (arteriosclerotic heart disease) COPD (chronic obstructive pulmonary disease) Diabetes DVT (deep venous thrombosis) Fatty liver History of colon cancer Hyperlipidemia Hypertension Lumbar radiculopathy Metabolic disorder Neuropathy Obesity Onychomycosis Osteoarthritis Prostate cancer Sleep apnea Statin intolerance Surgical History History of hernia repair S/P arthroscopy of left shoulder Status post small bowel resection Family History Other Family history unknown Social History Smoking and tobacco status: former smoker Alcohol intake: never Vitals/I&O/Wt Last Vital Signs Temp 98.6 F 12/27/19 04:00 Pulse 96 12/27/19 07:51 Resp 18 12/27/19 07:51 BP 115/75 12/27/19 07:51 Pulse Ox 96 12/27/19 07:51 12/26/19 12/27/19 12/27/19 22:59 06:59 14:59 Intake Total 770 / 770 Output Total 400 / 400 375 / 775 Balance 370 / 370 -375 / -5 Weight last 48 hrs Weight 350 lb Physical Exam Narrative: EXAM NARRATIVE: Patient is alert and oriented ?3 and in no acute distress. The following is a focused bilateral lower extremity exam. VASCULAR: Dorsalis pedis and posterior tibial arteries palpable. Capillary refill time less than 3 seconds to the distal hallux bilaterally. Calf is supple and nontender proximally and distally. Diminished hair growth at legs and feet. NEUROLOGICAL: Protective sensation intact 0/10sites, tested with Ethan Francis monofilament to bilateral feet. DERMATOLOGICAL: Puncture wounds with incision site left plantar forefoot subsecond intermetatarsal space demonstrates no purulent drainage, he does have cellulitis at the dorsum of the left foot this was demarcated with a permanent marker, is extending to the left anterior leg. Hemorrhagic callus at the plant ar medial aspect of the right hallux interphalangeal joint without underlying wound, no erythema warmth or drainage to this region. MUSCULOSKELETAL: Tenderness to palpation of the left forefoot. Muscle strength 5 out of 5 in all planes to the bilateral foot and ankle. Data Micro: Micro: Microbiology 12/26/19 09:52 Blood Culture - Pr eliminary Blood SPECIMEN [facility] 12/26/19 09:49 Blood Culture - Pr eliminary Blood SPECIMEN [facility] A&P Assessment and plan (1) Foreign body in foot, left: Status: Acute Qualifiers: Encounter type: initial encounter Qualified Code(s): S90.852A - Superficial foreign body, left foot, initial encounter (2) Diabetic peripheral neuropathy associated with type 2 diabetes mellitus: Status: Acute (3) Cellulitis: Status: Acute Qualifiers: Site of cellulitis: other site Qualified Code(s): L03.818 - Cellulitis of other sites 79-year-old diabetic male admitted to hospital service for empiric IV antibiotics and MRI secondary to puncture wound with foreign body and cellulitis to the left foot. -Leukocytosis resolved since admission, cellulitis demonstrating some improvement. -Dressing change performed this morning with wound being repacked utilizing quar ter inch sterile gauze packing, sterile 4 x 4, Kerlix and Erik wrap without compression. -Patient is to elevate his left lower extremity while at rest, may heel touch at left lower extremity for transfers. -Will await results of MRI no plans for surgical intervention unless MRI reveals further information necessitating I&D. -Foreign body removed in clinic on 12/24/2019 was sent to microbiology for Gram stain and culture pending. -Appreciate hospitalist medical management while inpatient, podiatry will follow Consult Attestations Medical Necessity Statement: Diabetic foot infection with cellulitis left foot secondary to foreign body. Coding Level of Care Code Acute Electrical Maintenance Supervisor for Kathleen Phillip Diagnoses Foreign body in foot, left S90.852A Encounter type: initial encounter Diabetic peripheral neuropathy associated with type 2 diabetes mellitus E11.42 Cellulitis L03.818 Site of cellulitis: other site
[2019-12-27] MEDS: levothyroxine 50 mcg Tablet PO (08:19)
[2019-12-27] MEDS: duloxetine 20 mg Capsule 40 MG PO (08:19)
[2019-12-27] MEDS: pantoprazole DR 40 mg Tablet PO (08:19)
[2019-12-27] MEDS: isosorbide mononitrate ER 60 mg Tablet 30 MG PO (08:19)
[2019-12-27] MEDS: gabapentin 300 mg Capsule 600 MG PO ×3 (08:20→21:56)
[2019-12-27] MEDS: metoprolol tartrate 50 mg Tablet PO ×2 (08:20→18:49)
[2019-12-27] MEDS: hyDRALAzine 10 mg Tablet PO ×3 (08:20→21:56)
[2019-12-27] MEDS: polyethylene glycol 3350 Pkt 17 gm PO (08:21)
[2019-12-27] MEDS: aspirin 81 mg EC Tablet PO (08:21)
--- NOTE | 2019-12-27 08:26 | P.PN_ITS ---
Subjective Subjective: Interval history: cellulitis appears to be improving today, unable to get MRI over the weekend, no acute overnight events Medications: Reviewed: Yes Vitals/I&O/Wt Last Vital Signs Temp 98.6 F 12/27/19 04:00 Pulse 96 12/27/19 07:51 Resp 18 12/27/19 07:51 BP 115/75 12/27/19 07:51 Pulse Ox 96 12/27/19 07:51 12/26/19 12/27/19 12/27/19 22:59 06:59 14:59 Intake Total 770 / 770 Output Total 400 / 400 375 / 775 Balance 370 / 370 -375 / -5 Weight last 48 hrs Weight 158.757 kg Physical Exam Const: COMMON NORMALS: patient oriented x3 and alert HENMT: COMMON NORMALS: normocephalic and atraumatic HEAD & SCALP: normocephalic and atraumatic Eye: COMMON NORMALS: Equal, round and reactive pupils present, EOMs intact bilaterally, conjunctivae normal and no scleral icterus CONJUNCTIVA: Yes conjunctivae normal PUPIL: Yes Equal, round and reactive pupils present Neck/C-Spine: COMMON NORMALS: no JVD Resp: COMMON NORMALS: normal respiratory effort, No retractions, No use of accessory muscles, clear to auscultation bilaterally and percussion normal AUSCULTATION: clear to auscultation bilaterally PERCUSSION: percussion normal Cardio: COMMON NORMALS: no JVD, regular rate, regular rhythm, S1 normal heart sound present, S2 normal heart sound present, No gallops present (Cardio), No clicks present (Cardio), No murmurs present (Cardio), No rub (Cardio) and Peripheral pulses 2+ throughout RATE: regular rate RHYTHM: regular rhythm HEART SOUNDS: S1 normal heart sound present and S2 normal heart sound present PERIPHERAL PULSES: Peripheral pulses 2+ throughout GI: COMMON NORMALS: Normal to inspection, nondistended, normoactive bowel sounds present, Soft to palpation, non-tender, No hepatosplenomegaly present, no masses and no bruits PALPATION: Yes Soft to palpation and Yes No hepatosplenomegaly present Extremity: COMMON NORMALS: normal to inspection, full ROM, capillary refill normal, no joint enlargement, no clubbing, cyanosis or edema, no calf tenderness and no pedal edema Neuro: COMMON NORMALS: patient oriented x3, CN's II-XII intact bilaterally, moves all extremities, no focal motor deficits, no sensory deficits noted, deep tendon reflexes 2+ bilaterally and gait normal SENSORIUM/ORIENTATION: Yes alert Psych: COMMON NORMALS: mental status grossly normal, Normal thought process present, cooperative, normal affect, speech normal, activity/motor behavior normal, denies hallucinations, denies homicidal ideation and denies suicidal ideation SPEECH: Yes normal speech THOUGHT PROCESS: Normal thought process present Skin: COMMON NORMALS: no rashes or lesions noted, no wounds, turgor normal, no jaundice, no petechiae and no mottling GENERAL SKIN EXAM: no rashes or lesions noted and turgor normal Data : 12/27/19 04:02 12/27/19 04:02 Micro: Microbiology 12/26/19 09:52 Blood Culture - Preliminary Blood SPECIMEN COLLECTED 12/26/19 09:49 Blood Culture - Preliminary Blood SPECIMEN COLLECTED A&P Assessment and plan (1) Cellulitis: Status: Acute Qualifiers: Site of cellulitis: other site Qualified Code(s): L03.818 - Cellulitis of other sites (2) Foreign body in foot, left: Status: Acute Qualifiers: Encounter type: initial encounter Qualified Code(s): S90.852A - Superficial foreign body, left foot, initial encounter (3) Diabetic peripheral neuropathy associated with type 2 diabetes mellitus: Status: Acute (4) Hypertension: Status: Acute Qualifiers: Hypertension type: essential hypertension Qualified Code(s): I10 - Essential (primary) hypertension (5) Sleep apnea: Status: Acute Qualifiers: Sleep apnea type: obstructive Qualified Code(s): G47.33 - Obstructive sleep apnea (adult) (pediatric) (6) Hyperlipidemia: Status: Acute Qualifiers: Hyperlipidemia type: mixed hyperlipidemia Qualified Code(s): E78.2 - Mixed hyperlipidemia (7) ASHD (arteriosclerotic heart disease): Status: Acute Additional A&P Information 79-year-old male with multiple comorbidities as above presenting for cellulitis which has developed after foreign body trauma on the from needles. #Cellulitis of the left forefoot: Patient was on Augmentin and Bactrim as an outpatient with progression of cellulitis Started Zosyn and Vancomycin empirically. Currently appears to be improving cellulitis over tibial bruner. Planned for MRI to r/o underlying abscess, however unable to get this study over the weekend Avoid CT with contrast due to underlying CKD # DM: high dose insulin sliding scale , currently well controlled #HTN: continue home medications # h/o anticoagulation for recurrent DVT and PE, INR currently 2.6, hold coumadin for now in case any procedures anticipated. 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
[2019-12-27] MEDS: sodium chloride 0.9% 1,000 ML 100 ML IV ×2 (10:00→21:54)
[2019-12-27] MEDS: ranolazine (12HR) 500 mg Tablet PO ×2 (10:07→18:49)
[2019-12-27] MEDS: diclofenac 1% Topical Gel 100 gm TOPICAL ×4 (10:07→21:55)
[2019-12-27 10:55] LABS: Glucose Point of Care 141 mg/dL (70-110)
[2019-12-27 16:55] LABS: Glucose Point of Care 131 mg/dL (70-110)
[2019-12-27] MEDS: ALPRAZolam 0.25 mg Tablet PO (18:49)
--- NOTE | 2019-12-27 21:18 | USCV_ITS ---
Berta Gage Age: 79 Gender: M : 1940 Exam Date: 12/27/2019 09:45 Ordering Phys: Jose Guadalupe Briceno DPM Technologist: Exam Location: [facility] [place]_ Indication: Diminished pedal pulses RIGHT LEFT Brachial mmHg Brachial 109.00 mmHg Pressure (mmHg) Waveform Pressure (mmHg) Waveform 144.00 Above Knee 128.00 126.00 Below Knee 107.00 122.00 MANAGER OF INVESTIGATIONS 109.00 110.00 DPA 129.00 1.01 Ankle/Brachial Index 1.18 0.83 Pre-Exercise Toe Pressure 0.91 FINDINGS See measurements listed above. Normal resting ABIs and TBIs bilaterally PVR waveforms showing loss of dicrotic notch CONCLUSIONS No significant arterial obstruction, based on the above findings. Features of possible extensive arterial sclerosis bilaterally Dr Lexis Foy MD FAC (Electronically Signed) Final Date: 28 December 2019 19:32 S
[2019-12-27 21:42] LABS: Glucose Point of Care 113 mg/dL (70-110)
[2019-12-27] MEDS: HYDROcodone-acetaminophen 5-325 mg Tablet 1 TAB PO (21:56)
[2019-12-28] VITALS (8 sets, daily range): BP systolic 106–179; BP diastolic 64–91; PULSE 71–89; RESP 16–20; TEMP 36.4–36.9; O2SAT 91–96
[2019-12-28] MEDS: piperacillin-tazobactam 3.375 GM in sodium chloride 0.9% (plus) 50 ML IV ×4 (00:40→23:50)
[2019-12-28 04:32] LABS: Basophils % 0.6 %; Eosinophils # 0.2 10^3/uL (0.0-0.8); Eosinophils % 3.2 %; Hematocrit 47.9 % (42.0-52.0); Hemoglobin 15.4 g/dL (11.7-16.6); Lymphocytes % 30.6 %; Mean Corpuscular HGB Conc 32.2 g/dL (30.0-36.0); Mean Corpuscular Hemoglobin 30.9 pg (28.0-34.0); Mean Platelet Volume 10.9 fL (7.4-10.4); Monocytes # 0.7 10^3/uL (0.2-0.9); Monocytes % 11.1 %; Nucleated Red Blood Cells % 0 %; Platelet Count 180 10^3/cmm (130-400); Red Blood Count 4.99 10^6/uL (4.1-5.3); White Blood Count 6.5 10^3/uL (4.0-10.0)
[2019-12-28 04:49] LABS: INR 1.75 (0.8-1.2)
[2019-12-28 05:02] LABS: Alanine Aminotransferase 16 U/L (0-41); Alkaline Phosphatase 59 IU/L (40-130); Anion Gap 14.2 (5-19); Aspartate Amino Transferase 21 U/L (0-40); Blood Urea Nitrogen 20 mg/dL (8-23); Calcium 8.8 mg/dL (8.5-10.5); Carbon Dioxide 20 mmol/L (22-29); Chloride 104 mmol/L (98-107); Globulin 3.7 g/dL (1.3-4.6); Glucose 122 mg/dL (65-115); Osmolality Calculated 282 mOsm/kg (285-295); Potassium 4.2 mmol/L (3.5-5.1); Sodium 134 mmol/L (136-145); Total Bilirubin 0.7 mg/dL (0.15-1.2); Total Protein 6.7 g/dL (6.6-8.7)
[2019-12-28 06:48] LABS: Glucose Point of Care 119 mg/dL (70-110)
[2019-12-28] MEDS: FUROsemide 40 mg Tablet 80 MG PO (06:51)
--- NOTE | 2019-12-28 08:26 | P.PN_ITS ---
Subjective Subjective: Interval history: Afebrile, hemodynamically stable, cellulitis over foot and lower leg continues to improve. Used CPAP at night, able to sleep well Medications: Reviewed: Yes Vitals/I&O/Wt Last Vital Signs Temp 98.4 F 12/28/19 04:00 Pulse 71 12/28/19 04:00 Resp 18 12/28/19 04:00 BP 108/64 12/28/19 04:00 Pulse Ox 93 12/28/19 04:00 12/27/19 12/28/19 12/28/19 22:59 06:59 14:59 Intake Total 1770 / 2300 Output Total 400 / 1200 Balance 1370 / 1100 Weight last 48 hrs Weight 158.757 kg Physical Exam Narrative: EXAM NARRATIVE: GEN: Awake, alert and oriented, no acute distress CVS: S1S2 N RS: CTA B/L Abd: Soft, nt/nd , bs+ GLASS PRODUCTS INSPECTOR: no focal neuro deficits Data : 12/28/19 03:50 12/28/19 03:50 Micro: Microbiology 12/26/19 09:52 Blood Culture - Preliminary Blood NEGATIVE TO DATE 12/26/19 09:49 Blood Culture - Preliminary Blood NEGATIVE TO DATE A&P Assessment and plan (1) Cellulitis: Status: Acute Qualifiers: Site of cellulitis: other site Qualified Code(s): L03.818 - Cellulitis of other sites (2) Foreign body in foot, left: Status: Acute Qualifiers: Encounter type: initial encounter Qualified Code(s): S90.852A - Superficial foreign body, left foot, initial encounter (3) Diabetic peripheral neuropathy associated with type 2 diabetes mellitus: Status: Acute (4) Hypertension: Status: Acute Qualifiers: Hypertension type: essential hypertension Qualified Code(s): I10 - Essential (primary) hypertension (5) Sleep apnea: Status: Acute Qualifiers: Sleep apnea type: obstructive Qualified Code(s): G47.33 - Obstructive sleep apnea (adult) (pediatric) (6) Hyperlipidemia: Status: Acute Qualifiers: Hyperlipidemia type: mixed hyperlipidemia Qualified Code(s): E78.2 - Mixed hyperlipidemia (7) ASHD (arteriosclerotic heart disease): Status: Acute Additional A&P Information 79-year-old male with multiple comorbidities as above presenting for cellulitis which has developed after foreign body trauma on the from needles. #Cellulitis of the left forefoot, progressing to lower leg: Patient was on Augmentin and Bactrim as an outpatient with progression of cellulitis Started Zosyn and Vancomycin empirically. Currently overall with improving cellulitis, but still persisting. Does not obviously appear to probe to bone, will await imaging to further delineate, less likely osteomyelitis given acuity of symptom onset Blood cx negative to date, foreign body cx do not reveal any growth thus far Planned for MRI to r/o underlying abscess, however unable to get this study over the weekend, planned for Sunday morning Avoid CT with contrast due to underlying CKD # DM: high dose insulin sliding scale , currently well controlled #HTN: continue home medications # h/o anticoagulation for recurrent DVT and PE, INR 2.6 on admission. Hold coumadin for now in case any procedures anticipated. 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
[2019-12-28] MEDS: sodium chloride 0.9% 1,000 ML 100 ML IV (09:00)
[2019-12-28] MEDS: pantoprazole DR 40 mg Tablet PO (09:02)
[2019-12-28] MEDS: levothyroxine 50 mcg Tablet PO (09:02)
[2019-12-28] MEDS: duloxetine 20 mg Capsule 40 MG PO (09:02)
[2019-12-28] MEDS: gabapentin 300 mg Capsule 600 MG PO ×3 (09:02→20:16)
[2019-12-28] MEDS: isosorbide mononitrate ER 60 mg Tablet 30 MG PO (09:02)
[2019-12-28] MEDS: hyDRALAzine 10 mg Tablet PO ×3 (09:02→20:16)
[2019-12-28] MEDS: aspirin 81 mg EC Tablet PO (09:02)
[2019-12-28] MEDS: metoprolol tartrate 50 mg Tablet PO ×2 (09:02→18:27)
[2019-12-28] MEDS: diclofenac 1% Topical Gel 100 gm TOPICAL ×4 (09:03→20:16)
[2019-12-28] MEDS: polyethylene glycol 3350 Pkt 17 gm PO (09:09)
[2019-12-28] MEDS: ranolazine (12HR) 500 mg Tablet PO ×2 (09:19→18:27)
--- NOTE | 2019-12-28 09:34 | P.PN_ITS ---
Subjective Subjective: Interval history: Patient denies any acute events overnight, responding well to IV antibiotics. Tolerating regular diet, afebrile no leukocytosis. Denies any significant pain to his left foot. Continues to have swelling and redness. Vitals/I&O/Wt Last Vital Signs Temp 97.8 F 12/28/19 08:00 Pulse 89 12/28/19 08:00 Resp 20 H 12/28/19 08:00 BP 179/91 12/28/19 08:00 Pulse Ox 95 12/28/19 08:00 12/27/19 12/28/19 12/28/19 22:59 06:59 14:59 Intake Total 1770 / 2300 1290 / 1290 Output Total 400 / 1200 Balance 1370 / 1100 1290 / 1290 Weight last 48 hrs Weight 350 lb Physical Exam Narrative: EXAM NARRATIVE: Patient is alert and oriented ?3 and in no acute distress. The following is a focused bilateral lower extremity exam. VASCULAR: Dorsalis pedis and posterior tibial arteries palpable. Capillary refill time less than 3 seconds to the distal hallux bilaterally. Calf is supple and nontender proximally and distally. Diminished hair growth at legs and feet. NEUROLOGICAL: Protective sensation intact 0/10sites, tested with [place] Francis monofilament to bilateral feet. DERMATOLOGICAL: Puncture wounds with incision site left plantar forefoot subsecond intermetatarsal space demonstrates no purulent drainage, he does have cellulitis at the dorsum of the left foot this was demarcated with a permanent marker, is extending to the left anterior leg. Hemorrhagic callus at the plantar medial aspect of the right hallux interphalangeal joint without underlying wound, no erythema warmth or drainage to this region. MUSCULOSKELETAL: Tenderness to palpation of the left forefoot. Muscle strength 5 out of 5 in all planes to the bilateral foot and ankle. Data : 12/28/19 03:50 12/28/19 03:50 Micro: Microbiology 12/26/19 09:52 Blood Culture - Preliminary Blood NEGATIVE TO DATE 12/26/19 09:49 Blood Culture - Preliminary Blood NEGATIVE TO DATE A&P Assessment and plan (1) Foreign body in foot, left: Status: Acute Qualifiers: Encounter type: initial encounter Qualified Code(s): S90.852A - Superficial foreign body, left foot, initial encounter (2) Diabetic peripheral neuropathy associated with type 2 diabetes mellitus: Status: Acute (3) Cellulitis: Status: Acute Qualifiers: Site of cellulitis: other site Qualified Code(s): L03.818 - Cellulitis of other sites 79-year-old diabetic male admitted to hospital service for empiric IV antibiotics and MRI secondary to puncture wound with foreign body and cellulitis to the left foot. -Leukocytosis resolved since admission, cellulitis demonstrating some improvement. -Dressing change performed this morning with wound being repacked utilizing quarter inch sterile gauze packing, sterile 4 x 4, Kerlix and Erik wrap without compression. -Patient is to elevate his left lower extremity while at rest, may heel touch at left lower extremity for transfers. -MRI scheduled for Sunday, bridging Lovenox for anticoagulation due to potential for surgical intervention pending MRI findings. -Foreign body removed in clinic on 12/24/2019 was sent to microbiology for Gram stain and culture pending. 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
[2019-12-28 10:49] LABS: Glucose Point of Care 133 mg/dL (70-110)
[2019-12-28] MEDS: enoxaparin 120 mg/0.8 mL Syringe SUBCUT ×2 (13:37→23:50)
[2019-12-28] MEDS: enoxaparin 30 mg/0.3 mL Syringe SUBCUT ×2 (13:38→23:46)
[2019-12-28] MEDS: nystatin cream 30 gm 1 APPLIC TOPICAL (13:38)
[2019-12-28] MEDS: FUROsemide 10 mg/mL SDV 2mL 20 MG IVP (13:39)
[2019-12-28] MEDS: HYDROcodone-acetaminophen 5-325 mg Tablet 1 TAB PO ×2 (13:39→20:16)
[2019-12-28 17:17] LABS: Glucose Point of Care 131 mg/dL (70-110)
[2019-12-28 20:25] LABS: Glucose Point of Care 173 mg/dL (70-110)
[2019-12-28 21:27] LABS: Vancomycin Trough 8.7 ug/mL (10-15)
--- NOTE | 2019-12-28 22:06 | PC.PHAR ---
Vancomycin trough on 2000mg IVPB every 24 hours if 8.7. Dosage is increased to 1500mg IVPB every 12 hours with a trough to be obtained before the fourth 1500mg dose to determine if further adjustment is needed.
--- NOTE | 2019-12-28 22:15 | PC.NURSE ---
VANCOMYCIN Vanc trough was 8.7. Dose adjusted by pharmacy
[2019-12-29 04:00] VITALS: BP 153/85; PULSE 73; RESP 18; TEMP 36.4; O2SAT 94
--- NOTE | 2019-12-29 05:20 | PC.NURSE ---
SHIFT SUMMARY Has rested well. Very pleasant and talkative. Dressing/gauze & julio wrap intact to right foot. Enc to keep right leg elevated on pillow. Has some edema, warmth and redness up anterior bruner. Is within previous markings. Has denied pain in foot. Says has bad neuropathy Wears CPAP while sleeping.
[2019-12-29] MEDS: FUROsemide 40 mg Tablet 80 MG PO (06:31)
[2019-12-29 06:48] LABS: Glucose Point of Care 127 mg/dL (70-110)
[2019-12-29] MEDS: piperacillin-tazobactam 3.375 GM in sodium chloride 0.9% (plus) 50 ML IV ×3 (07:10→23:29)
[2019-12-29] MEDS: aspirin 81 mg EC Tablet PO (07:16)
[2019-12-29] MEDS: gabapentin 300 mg Capsule 600 MG PO ×3 (07:16→20:47)
[2019-12-29] MEDS: duloxetine 20 mg Capsule 40 MG PO (07:16)
[2019-12-29] MEDS: isosorbide mononitrate ER 60 mg Tablet 30 MG PO (07:17)
[2019-12-29] MEDS: hyDRALAzine 10 mg Tablet PO ×3 (07:17→20:47)
[2019-12-29] MEDS: pantoprazole DR 40 mg Tablet PO (07:17)
[2019-12-29] MEDS: metoprolol tartrate 50 mg Tablet PO ×2 (07:18→17:30)
[2019-12-29] MEDS: nystatin cream 30 gm 1 APPLIC TOPICAL ×2 (07:18→17:31)
[2019-12-29] MEDS: ranolazine (12HR) 500 mg Tablet PO ×2 (07:32→17:30)
[2019-12-29] MEDS: levothyroxine 50 mcg Tablet PO (07:32)
[2019-12-29] MEDS: diclofenac 1% Topical Gel 100 gm TOPICAL ×4 (07:34→20:48)
[2019-12-29 07:40] VITALS: BP 154/90; PULSE 79; RESP 18; TEMP 36.1; O2SAT 96
--- NOTE | 2019-12-29 07:56 | PM.PN ---
Subjective Subjective: Interval history: Patient seen bedside this morning, denies any acute events overnight. Denies any pain to his left foot. Patient denies any subjective nausea, vomiting, fever, chills, shortness of breath or chest pain. Scheduled for MRI today without contrast due to renal function. Vitals/I&O/Wt Last Vital Signs Temp 97.0 F L 12/29/19 07:40 Pulse 79 12/29/19 07:40 Resp 18 12/29/19 07:40 BP 154/90 12/29/19 07:40 Pulse Ox 96 12/29/19 07:40 12/28/19 12/29/19 12/29/19 22:59 06:59 14:59 Intake Total 410 / 1990 540 / 2530 Output Total 1080 / 2880 800 / 800 Balance -670 / -890 540 / -350 -800 / -800 Physical Exam Narrative: EXAM NARRATIVE: Patient is alert and oriented ?3 and in no acute distress. The following is a focused bilateral lower extremity exam. VASCULAR: Dorsalis pedis and posterior tibial arteries palpable. Capillary refill time less than 3 seconds to the distal hallux bilaterally. Calf is supple and nontender proximally and distally. Diminished hair growth at legs and feet. NEUROLOGICAL: Protective sensation intact 0/10sites, tested with [place] Francis monofilament to bilateral feet. DERMATOLOGICAL: Puncture wounds with incision site left plantar forefoot subsecond intermetatarsal space demonstrates no purulent drainage, he does have cellulitis at the dorsum of the left foot this was demarcated with a permanent marker, is extending to the left anterior leg cellulitis is subsiding from line of demarcation. Hemorrhagic callus at the plantar medial aspect of the right hallux interphalangeal joint without underlying wound, no erythema warmth or drainage to this region. MUSCULOSKELETAL: Tenderness to palpation of the left forefoot. Muscle strength 5 out of 5 in all planes to the bilateral foot and ankle. Data : 12/28/19 03:50 12/28/19 03:50 A&P Assessment and plan (1) Foreign body in foot, left: Status: Acute Qualifiers: Encounter type: initial encounter Qualified Code(s): S90.852A - Superficial foreign body, left foot, initial encounter (2) Diabetic peripheral neuropathy associated with type 2 diabetes mellitus: Status: Acute (3) Cellulitis: Status: Acute Qualifiers: Laterality: left Site of cellulitis: extremity Site of cellulitis of extremity: lower extremity Qualified Code(s): L03.116 - Cellulitis of left lower limb 79-year-old diabetic male admitted to hospital service for empiric IV antibiotics and MRI secondary to puncture wound with foreign body and cellulitis to the left foot. -Leukocytosis resolved since admission, cellulitis demonstrating some improvement. -Dressing change performed this morning with wound being repacked utilizing quarter inch sterile gauze packing, sterile 4 x 4, Kerlix and Erik wrap without compression. -Patient is to elevate his left lower extremity while at rest, may heel touch at left lower extremity for transfers. -Foreign body removed in clinic on 12/24/2019 was sent to microbiology for Gram stain and culture pending. -Unable to perform MRI, patient exceeds weight limit. Will do CT with contrast left footbridging Lovenox for anticoagulation due to potential for surgical intervention pending MRI findings. -GOGO and TBI normal bilaterally. PVR waveforms shows loss of dicrotic notch, findings suggestive of arterial sclerosis bilaterally without significant arterial obstruction. -Appreciate hospitalist medical management while inpatient, podiatry will follow Attestations Medical Necessity Statement*: Diabetic foot infection with foreign body left foot, cellulitis left lower extremity Coding Level of Care Code Acute Health Manager for [facility] Diagnoses Foreign body in foot, left S90.852A Encounter type: initial encounter Diabetic peripheral neuropathy associated with type 2 diabetes mellitus E11.42 Cellulitis L03.116 Laterality: left Site of cellulitis: extremity Site of cellulitis of extremity: lower extremity
[2019-12-29 09:03] VITALS: BMI 37.5
[2019-12-29 09:04] VITALS: BMI 51.2
--- NOTE | 2019-12-29 09:10 | PC.RESP ---
PULMONARY REHAB INFORMATION SENT TO PATIENT.
--- NOTE | 2019-12-29 09:16 | PC.NURSE ---
MRI called to notify that Patient is unable to have a MRI due to weight. Dr. Waller notified and had me call Dr. Briceno. Per Dr. Briceno, cancel MRI and reach out to Dr. Waller regarding possible CT with Contrast depending on Renal Function. Will address with Dr. Waller with rounding. TARANW, TUG CAPTAIN
--- NOTE | 2019-12-29 09:20 | PC.SOCIAL ---
IMM Page 2 of IMM given to patient. Initialed, dated, and timed and placed in chart.
--- NOTE | 2019-12-29 09:31 | CT_ITS ---
WS: [id number] NONCONTRAST CT LEFT FOOT TECHNIQUE: Noncontrast CT left foot with coronal and sagittal reformatted images. CLINICAL INFORMATION: osteomylitis COMPARISON: None. DLP: 234.[address] scans at [facility] use at least one of these dose optimization techniques: automat ed exposure control; mA and/or kV adjustment per patient size (includes targeted exams where dose is matched to clinical indication); or iterative reconstruction. FINDINGS: Normal ankle mortise. Normal medial and lateral malleolus. Normal talar dome. Normal talus and calcan eus. Small plantar calcaneal spur. Mild edema lower leg and foot soft tissues. Plantar forefoot soft tissue edema with foreign body removal. No evidence of residual radiopaque foreign body. No evidence of osteomyelitis. No drainable abscess or fluid collection. Vascular calcification. CT/CT foot LT w con [id number] IMPRESSION: 1. No evidence of residual radiopaque foreign body. 2. No evidence of osteomyelitis 3. No drainable abscess or fluid collection.
[2019-12-29] MEDS: ALPRAZolam 0.25 mg Tablet PO (10:22)
[2019-12-29 10:55] LABS: Glucose Point of Care 159 mg/dL (70-110)
[2019-12-29] MEDS: enoxaparin 30 mg/0.3 mL Syringe SUBCUT ×2 (11:21→23:29)
[2019-12-29] MEDS: enoxaparin 120 mg/0.8 mL Syringe SUBCUT ×2 (11:21→23:30)
[2019-12-29 11:39] VITALS: BP 98/63; PULSE 72; RESP 18; TEMP 36.4; O2SAT 95
[2019-12-29 15:16] VITALS: BP 129/71; PULSE 88; RESP 20; TEMP 36.2; O2SAT 95
[2019-12-29 16:39] LABS: Glucose Point of Care 136 mg/dL (70-110)
[2019-12-29] MEDS: warfarin 5 mg Tablet PO (17:30)
[2019-12-29] MEDS: warfarin 2 mg Tablet PO (17:30)
--- NOTE | 2019-12-29 17:31 | P.PN_ITS ---
Subjective Subjective: Interval history: Today he is doing well. Unfortunately we could not proceed with MRI due to weight restrictions. Discussed this with him. He was agreeable to proceed with a CT scan with IV contrast instead after discussion of risks and benefits. Vitals/I&O/Wt Last Vital Signs Temp 97.2 F L 12/29/19 15:16 Pulse 88 12/29/19 15:16 Resp 20 H 12/29/19 15:16 BP 129/71 12/29/19 15:16 Pulse Ox 95 12/29/19 15:16 12/29/19 12/29/19 12/29/19 06:59 14:59 22:59 Intake Total 540 / 2530 530 / 530 Output Total 1700 / 1700 600 / 2300 Balance 540 / -350 -1170 / -1170 -600 / -1770 Weight last 48 hrs Weight 166.65 kg Weight 166.65 kg Physical Exam Const: COMMON NORMALS: no acute distress and patient oriented x3 OTHER: He is awake, alert, sitting up in chair. He is very pleasant. He is hard of hearing, but does hear if spoken to loudly. HENMT: COMMON NORMALS: oropharynx normal Neck/C-Spine: COMMON NORMALS: no JVD Resp: COMMON NORMALS: normal respiratory effort and clear to auscultation bilaterally AUSCULTATION: clear to auscultation bilaterally Cardio: COMMON NORMALS: no JVD, regular rhythm, S1 normal heart sound present, S2 normal heart sound present and No murmurs present (Cardio) RHYTHM: regular rhythm HEART SOUNDS: S1 normal heart sound present and S2 normal heart sound present GI: COMMON NORMALS: Normal to inspection, nondistended, normoactive bowel sounds present, Soft to palpation and non-tender PALPATION: Yes Soft to palpation Extremity: COMMON NORMALS: no joint enlargement and no pedal edema OTHER: Left lower extremity with swelling of the left foot, wrapped in clean dressing, without bleeding, purulent discharge. Cellulitis extending from left foot on the anterior lateral portion of the left lower leg to about two thirds way up. This is not intensely red, it appears to be significantly improving. There is no extension past demarcation. Neuro: COMMON NORMALS: patient oriented x3 and moves all extremities Skin: COMMON NORMALS: no rashes or lesions noted GENERAL SKIN EXAM: no rashes or lesions noted Data : 12/28/19 03:50 12/28/19 03:50 A&P Assessment and plan (1) Cellulitis: This appears to be improving significantly, with decrease in erythema. There is no progression past demarcation. He is afebrile, without leukocytosis. No tachycardia or other signs of sepsis. Unfortunately MRI could not be assessed due to weight limitations. He was agreeable to assessment instead by CT with contrast. No residual foreign body, no drainable abscess, no osteomyelitis noted on CT. Discussed with podiatry. We will plan for him to return home with outpatient follow-up. He would not be able to change his own dressings. He is agreeable to call his to get her to come here and be trained and says that she should be able to handle changing his dressings for him at home. Per discussion with podiatry recommendation would be for additional 2 weeks of oral antibiotics given foreign body penetration in setting of diabetes with empiric coverage. Ciprofloxacin and doxycycline. Status: Acute Qualifiers: Site of cellulitis: extremity Site of cellulitis of extremity: lower extremity Laterality: left Qualified Code(s): L03.116 - Cellulitis of left lower limb (2) Foreign body in foot, left: Status post retrieval. Status: Acute Qualifiers: Encounter type: initial encounter Qualified Code(s): S90.852A - Superficial foreign body, left foot, initial encounter (3) Diabetic peripheral neuropathy associated with type 2 diabetes mellitus: Continue optimization of blood glucose. A1c is 6. Status: Acute (4) Hypertension: At goal. Status: Acute (5) Sleep apnea: Continue CPAP with sleep Status: Acute Qualifiers: Sleep apnea type: obstructive Qualified Code(s): G47.33 - Obstructive sleep apnea (adult) (pediatric) (6) Hyperlipidemia: Continue statin Status: Acute Qualifiers: Hyperlipidemia type: mixed hyperlipidemia Qualified Code(s): E78.2 - Mixed hyperlipidemia (7) ASHD (arteriosclerotic heart disease): Continue CAD medications. Status: Acute Additional A&P Information # h/o anticoagulation for recurrent DVT and PE, INR down to 1.75. Will give little bit higher dose warfarin today 7 mg. Recheck INR in the morning. Would require bridging with Lovenox until therapeutic after discharge. # h/o CHF: On lasix 80mg po qd, currently euvolemic # continue home dose of cymbalta, gabapentin DVT ppx: Full dose Lovenox Full code Attestations Medical Necessity Statement*: Continue admission for assessment management of wound of left lower extremity, cellulitis, in a setting of diabetes, disposition arrangements. Coding Level of Care Code Acute Manager Administrative for [facility] Fwd Diagnoses Cellulitis L03.116 Site of cellulitis: extremity Site of cellulitis of extremity: lower extremity Laterality: left Foreign body in foot, left S90.852A Encounter type: initial encounter Diabetic peripheral neuropathy associated with type 2 diabetes mellitus E11.42 Hypertension I10 Sleep apnea G47.33 Sleep apnea type: obstructive Hyperlipidemia E78.2 Hyperlipidemia type: mixed hyperlipidemia ASHD (arteriosclerotic heart disease) I25.10
--- NOTE | 2019-12-29 18:15 | PC.NURSE ---
End of Shift Report: Per Dr. Briceno patient is to remain in boot through night. Dressing changed today by myself as ordered in Wound Care Orders. Dr. Waller plans to d/c patient home tomorrow after comes into hospital at 10am with floor nurse to learn wound care directions. Patient was restarted on coumadin this shift as his INR was 1.75. Patient has history of anxiety and has had a few anxious moments this shift being emotional of not getting an MRI and going home. He was given xanax and is now doing well. He will f/u with Dr. Briceno on , 2019 at 1545. This was added to the patients d/c plan and patient voiced understanding. Patient is very hard of hearing and has 2 hearing aids at bedside but states the batteries are . Dr. Briceno called and updated on patients plan of care. Will continue to closely monitor. TIFFANI, VIV
[2019-12-29 19:28] VITALS: BP 131/81; PULSE 72; RESP 18; TEMP 36.3; O2SAT 92
[2019-12-29] MEDS: HYDROcodone-acetaminophen 5-325 mg Tablet 1 TAB PO (20:06)
[2019-12-29 20:51] LABS: Glucose Point of Care 155 mg/dL (70-110)
[2019-12-30] VITALS (7 sets, daily range): BP systolic 108–151; BP diastolic 61–88; PULSE 73–79; RESP 18–22; TEMP 36.5–37; O2SAT 92–96
[2019-12-30 05:03] LABS: Basophils # 0.1 10^3/uL (0.0-0.1); Basophils % 0.9 %; Eosinophils # 0.3 10^3/uL (0.0-0.8); Eosinophils % 4.4 %; Hematocrit 46.7 % (42.0-52.0); Hemoglobin 15.4 g/dL (11.7-16.6); Lymphocytes # 2.2 10^3/uL (0.8-4.8); Lymphocytes % 38.5 %; Mean Corpuscular Hemoglobin 31.3 pg (28.0-34.0); Mean Corpuscular Volume 94.9 fL (80-94); Mean Platelet Volume 10.9 fL (7.4-10.4); Monocytes # 0.6 10^3/uL (0.2-0.9); Monocytes % 10.1 %; Neutrophils # 2.58 10^3/uL (1.8-7.7); Neutrophils % 45.6 %; Nucleated Red Blood Cells % 0 %; Platelet Count 186 10^3/cmm (130-400); Red Blood Count 4.92 10^6/uL (4.1-5.3); Red Cell Distribution Width 13.6 % (12.1-15.1); White Blood Count 5.7 10^3/uL (4.0-10.0)
[2019-12-30 05:25] LABS: Alanine Aminotransferase 23 U/L (0-41); Albumin Level 3.1 g/dL (3.5-5.2); Alkaline Phosphatase 56 IU/L (40-130); Chloride 105 mmol/L (98-107); Sodium 136 mmol/L (136-145)
[2019-12-30 05:34] LABS: INR 1.34 (0.8-1.2)
--- NOTE | 2019-12-30 05:34 | PC.NURSE ---
SHIFT SUMMARY Has had a good night. c/o boot making his left foot hurt at beginning of shift. Was medicated with po Hydrocodone X1 with good relief. Is very pleasant and likes to talk. Quite B[place]. Receiving IV antibiotics as ordered. Dressing/boot to left foot D&I. Says is coming today to learn to do the packing at home
[2019-12-30 05:39] LABS: Aspartate Amino Transferase 29 U/L (0-40); Blood Urea Nitrogen 20 mg/dL (8-23); Calcium 8.8 mg/dL (8.5-10.5); Carbon Dioxide 21 mmol/L (22-29); Globulin 3.7 g/dL (1.3-4.6); Glucose 125 mg/dL (65-115); Osmolality Calculated 286 mOsm/kg (285-295); Total Bilirubin 0.6 mg/dL (0.15-1.2); Total Protein 6.8 g/dL (6.6-8.7)
[2019-12-30 05:41] LABS: Anion Gap 13.9 (5-19); Potassium 3.9 mmol/L (3.5-5.1)
[2019-12-30] MEDS: FUROsemide 40 mg Tablet 80 MG PO (05:45)
[2019-12-30 06:45] LABS: Glucose Point of Care 124 mg/dL (70-110)
[2019-12-30] MEDS: piperacillin-tazobactam 3.375 GM in sodium chloride 0.9% (plus) 50 ML IV (07:59)
[2019-12-30] MEDS: aspirin 81 mg EC Tablet PO (08:01)
[2019-12-30] MEDS: gabapentin 300 mg Capsule 600 MG PO ×2 (08:02→16:59)
[2019-12-30] MEDS: hyDRALAzine 10 mg Tablet PO ×2 (08:02→17:00)
[2019-12-30] MEDS: duloxetine 20 mg Capsule 40 MG PO (08:02)
[2019-12-30] MEDS: levothyroxine 50 mcg Tablet PO (08:02)
[2019-12-30] MEDS: isosorbide mononitrate ER 60 mg Tablet 30 MG PO (08:02)
[2019-12-30] MEDS: pantoprazole DR 40 mg Tablet PO (08:03)
[2019-12-30] MEDS: polyethylene glycol 3350 Pkt 17 gm PO (08:03)
[2019-12-30] MEDS: nystatin cream 30 gm 1 APPLIC TOPICAL ×2 (08:03→17:01)
[2019-12-30] MEDS: metoprolol tartrate 50 mg Tablet PO ×2 (08:03→17:00)
[2019-12-30] MEDS: ranolazine (12HR) 500 mg Tablet PO ×2 (08:04→17:04)
[2019-12-30] MEDS: diclofenac 1% Topical Gel 100 gm TOPICAL ×3 (08:04→17:00)
--- NOTE | 2019-12-30 11:00 | PM.DCS ---
Discharge Providers Date of Admission: 12/26/19 13:54 Date of Discharge: December 30, 2019 Attending Provider at Admission: Denise Murcia MD Attending Provider at Discharge: Adin Waller Primary Care Provider: Keven Marcus Diagnoses at Discharge Discharge Diagnosis (1) Cellulitis: Status: Acute Qualifiers: Site of cellulitis: extremity Site of cellulitis of extremity: lower extremity Laterality: left Qualified Code(s): L03.116 - Cellulitis of left lower limb (2) Foreign body in foot, left: Status: Acute Qualifiers: Encounter type: initial encounter Qualified Code(s): S90.852A - Superficial foreign body, left foot, initial encounter (3) Diabetic peripheral neuropathy associated with type 2 diabetes mellitus: Status: Acute (4) Hypertension: Status: Acute (5) Sleep apnea: Status: Acute Qualifiers: Sleep apnea type: obstructive Qualified Code(s): G47.33 - Obstructive sleep apnea (adult) (pediatric) (6) Hyperlipidemia: Status: Acute Qualifiers: Hyperlipidemia type: mixed hyperlipidemia Qualified Code(s): E78.2 - Mixed hyperlipidemia (7) ASHD (arteriosclerotic heart disease): Status: Acute Reason for Visit Reason for Visit: LEFT LEG INFECTION Hospital Course Hospital Course: Pleasant 79-year-old gentleman with history of diabetes, CAD, HLD, history of colon cancer, HTN, hypothyroidism, peripheral neuropathy, obesity, osteoarthritis, prostate cancer, sleep apnea on nightly CPAP, DVT on chronic anticoagulation with warfarin was admitted for assessment management of her developing injury to his left foot after stepping on sewing needle, with developing cellulitis subsequently after failing outpatient antibiotics. While in the hospital he was assessed by podiatry, been treated with Zosyn and vancomycin. His warfarin was held in anticipation of surgical procedure. Foreign object was removed by podiatry. Sent for culture. No growth was noted on wound or blood culture. Subjectively he is doing much better, as well as his cellulitis has significantly improved. MRI of the foot could not be obtained unfortunately due to his body habitus. He had CT of the foot with contrast which did not show any residual foreign bodies, no drainable fluid collection or abscess, no osteomyelitis noted. If there are concerns for ongoing infection consider additional outpatient MRI at a facility which could accommodate his weight. On discussion with podiatry recommendation is for additional 2 weeks of antibiotics which she will complete with doxycycline and ciprofloxacin empirically. As his warfarin was held during hospitalization, his INR has decreased, today down to 1.34, he received 7 mg of warfarin yesterday and is going to receive 8 mg today. He is given supply of 5 days of Lovenox for now. Please follow-up INR and adjust warfarin dosing accordingly. Once therapeutic discontinue Lovenox. His was provided education on Lovenox injections (she had given those to him before) as well as dressing changes. To assist with dressing changes home health is ordered as well. Physical Exam Const: COMMON NORMALS: no acute distress and patient oriented x3 OTHER: Pleasant. Conversant. He is hard of hearing, but does hear if spoken to loudly. Says he is feeling well. HENMT: COMMON NORMALS: oropharynx normal Neck/C-Spine: COMMON NORMALS: no JVD Resp: COMMON NORMALS: normal respiratory effort and clear to auscultation bilaterally AUSCULTATION: clear to auscultation bilaterally Cardio: COMMON NORMALS: no JVD, regular rhythm, S1 normal heart sound present, S2 normal heart sound present and No murmurs present (Cardio) RHYTHM: regular rhythm HEART SOUNDS: S1 normal heart sound present and S2 normal heart sound present GI: COMMON NORMALS: Normal to inspection, nondistended, normoactive bowel sounds present, Soft to palpation and non-tender PALPATION: Yes Soft to palpation Extremity: COMMON NORMALS: no joint enlargement and no pedal edema OTHER: Left lower extremity with swelling of the left foot, wrapped in clean dressing, without bleeding, purulent discharge. Improving cellulitis extending from left foot on the anterior lateral portion of the left lower leg to about two th[address] way up. There is no extension past demarcation. Neuro: COMMON NORMALS: patient oriented x3 and moves all extremities Skin: COMMON NORMALS: no rashes or lesions noted GENERAL SKIN EXAM: no rashes or lesions noted Discharge Data Data Completed and Pending: Completed Studies During Hospitalization Category Date Time Status CT foot LT w con [id number] Routine Cat Scan 12/29/19 09:31 Completed XR chest 1V david ble [id number] Stat Exams 12/26/19 11:55 Completed XR foot LT min 3V * [id number] Routine Exams 12/26/19 21:17 [place] [id number] Rout ine Ultrasound 12/27/19 21:18 Completed Pending at discharge Category Date Time Status Blood Culture Sta t Lab 12/26/19 09:52 Results Complete Blood Co unt w/Auto AM LABS Lab 12/31/19 04:00 Ordered Complete Blood Co unt w/Auto AM LABS Lab 01/01/20 04:00 Ordered Comprehensive Met abolic Panel AM LA BS Lab 12/31/19 04:00 Ordered Comprehensive Met abolic Panel AM LA BS Lab 01/01/20 04:00 Ordered Prothrombin Time INR AM LABS Lab 12/31/19 04:00 Ordered Prothrombin Time INR AM LABS Lab 01/01/20 04:00 Ordered Labs from last 24 hours 12/30/19 12/30/19 12/30/19 09:10 06:32 04:14 WBC RBC Hgb Hct MCV MCH MCHC RDW Plt Count MPV Neut % (Auto) Lymph % (Auto) Fleming % (Auto) Eos % (Auto) Baso % (Auto) Neut # (Auto) Lymph # (Auto) Fleming # (Auto) Eos # (Auto) Baso # (Auto) Nucleated RBC % (a uto) Nucleated RBCs # PT INR Sodium 136 Potassium 3.9 Chloride 105 Carbon Dioxide 21 L Anion Gap 13.9 BUN 20 Creatinine 1.2 GFR Calculation Not Reportable Glucose 125 H POC Glucose 124 Calculated Osmolal ity 286 Calcium 8.8 Total Bilirubin 0.6 AST 29 ALT 23 Alkaline Phosphata se 56 Total Protein 6.8 Albumin 3.1 L Globulin 3.7 Vancomycin Trough 16.0 H 12/30/19 12/30/19 12/29/19 04:14 04:14 20:43 WBC 5.7 RBC 4.92 Hgb 15.4 Hct 46.7 MCV 94.9 H MCH 31.3 MCHC 33.0 RDW 13.6 Plt Count 186 MPV 10.9 H Neut % (Auto) 45.6 Lymph % (Auto) 38.5 Fleming % (Auto) 10.1 Eos % (Auto) 4.4 Baso % (Auto) 0.9 Neut # (Auto) 2.58 Lymph # (Auto) 2.2 Fleming # (Auto) 0.6 Eos # (Auto) 0.3 Baso # (Auto) 0.1 Nucleated RBC % (a uto) 0 Nucleated RBCs # 0.0 PT 17.10 H INR 1.34 H Sodium Potassium Chloride Carbon Dioxide Anion Gap BUN Creatinine GFR Calculation Glucose POC Glucose 155 Calculated Osmolal ity Calcium Total Bilirubin AST ALT Alkaline Phosphata se Total Protein Albumin Globulin Vancomycin Trough 12/29/19 16:31 WBC RBC Hgb Hct MCV MCH MCHC RDW Plt Count MPV Neut % (Auto) Lymph % (Auto) Fleming % (Auto) Eos % (Auto) Baso % (Auto) Neut # (Auto) Lymph # (Auto) Fleming # (Auto) Eos # (Auto) Baso # (Auto) Nucleated RBC % (a uto) Nucleated RBCs # PT INR Sodium Potassium Chloride Carbon Dioxide Anion Gap BUN Creatinine GFR Calculation Glucose POC Glucose 136 Calculated Osmolal ity Calcium Total Bilirubin AST ALT Alkaline Phosphata se Total Protein Albumin Globulin Vancomycin Trough Vitals: Last Vital Signs Temp 97.8 F 12/30/19 07:49 Pulse 79 12/30/19 07:49 Resp 18 12/30/19 07:49 BP 135/83 12/30/19 07:49 Pulse Ox 96 12/30/19 09:56 Discharge Plan Discharge Patient Disposition: Home Health Service Condition: Stable Prescriptions: New enoxaparin 120 mg/0.8 mL Syringe 120 mg SUBCUT Q12H 5 Days Qty: 8 RF: 0 ciprofloxacin HCl [Cipro] 500 mg tablet 500 mg PO BID Qty: 28 RF: 0 doxycycline hyclate 100 mg capsule 100 mg PO BID 28 Days Qty: 56 RF: 0 Continued metoprolol tartrate 50 mg tablet 50 mg PO BID RF: 0 levothyroxine 50 mcg capsule 50 mcg PO DAILY RF: 0 gabapentin 300 mg capsule 600 mg PO TID RF: 0 glipizide 10 mg tablet 10 mg PO BID RF: 0 polyethylene glycol 3350 [Miralax] 17 gram/dose powder 17 gm PO DAILY RF: 0 diclofenac sodium [Voltaren] 1 % gel 4 gm TOPICAL QID RF: 0 clopidogrel 75 mg tablet 75 mg PO DAILY RF: 0 Biotin Plus-Calcium and Vit D3 200-450-400 mg-mcg-unit tablet 1 tab PO BID RF: 0 hydralazine 10 mg tablet 10 mg PO TID RF: 0 ranolazine [Ranexa] 500 mg tablet extended release 12 hr 500 mg PO BID RF: 0 magnesium L-lactate 84 mg tablet extended release 84 mg PO BID RF: 0 aspirin [Adult Low Dose Aspirin] 81 mg tablet,delayed release (DR/EC) 81 mg PO DAILY RF: 0 nitroglycerin [Nitrostat] 0.4 mg tablet, sublingual 0.4 mg SUBLINGUAL Q5M PRN (Reason: Chest Pain) RF: 0 pravastatin 80 mg tablet 40 mg PO DAILY RF: 0 warfarin 2 mg tablet 6 mg PO DAILY RF: 0 isosorbide mononitrate 60 mg tablet extended release 24 hr 30 mg PO DAILY RF: 0 furosemide 80 mg tablet 80 mg PO QAM Qty: 90 RF: 3 omeprazole 20 mg Capsule,Delayed Release(Dr/Ec) 20 mg PO DAILY RF: 0 Vitamin D3 25 mcg (1,000 unit) Capsule 50 mcg PO DAILY RF: 0 duloxetine 20 mg Capsule,Delayed Release(Dr/Ec) 40 mg PO DAILY RF: 0 ferrous gluconate 324 mg (37.5 mg iron) Tablet 324 mg PO DAILY RF: 0 Jardiance 25 mg Tablet 12.5 mg PO DAILY RF: 0 Discontinued amoxicillin-pot clavulanate [Augmentin] 875-125 mg tablet 1 tab PO Q12H Qty: 14 RF: 0 Discharge Orders: Discharge Order (Routine); Ordered 12/30/19 Ordered By: Adin Waller Referrals: Jose Guadalupe Briceno DPM [Physician] - 01/01/20 3:45 pm () Keven Marcus [Primary Care Provider] - 4-7 days Discharge Diet: Diabetic Discharge Activity: Limit activity as instructed Activity Restrictions/Additional Instructions: Elevate his left lower extremity while at rest, may heel touch at left lower extremity for transfers. Maintain fall precautions. Remove any loose objects from the floor. Complete antibiotics for your skin infection. Follow-up with podiatry in office. As you are INR (blood thinner) level is critically low at 1.75, which responds you to getting blood clot, you are for now given Lovenox to take alongside warfarin until INR is back to therapeutic range between 2-3. Please have your primary care doctor check your INR in office in 2 days. If INR becomes therapeutic discontinue Lovenox. Otherwise continue and work with your primary care doctor to further recheck INR and stop Lovenox once warfarin is therapeutic. Continue CPAP at night for sleep apnea. If you experience any high fevers, any severe pain, worsening redness, numbness, weakness, or any unusual symptoms, please seek medical attention immediately. Discharge Attestations Time Spent in Discharge Care*: greater than 30 min Quality Metrics Clinical Quality Measures During this hospital stay, did patient experience: None Coding Level of Care Code Acute Compensation/Benefits Specialist for [facility] Fwd Diagnoses Cellulitis L03.116 Site of cellulitis: extremity Site of cellulitis of extremity: lower extremity Laterality: left Foreign body in foot, left S90.857A Encounter type: initial encounter Diabetic peripheral neuropathy associated with type 2 diabetes mellitus E11.42 Hypertension I10 Sleep apnea G47.33 Sleep apnea type: obstructive Hyperlipidemia E78.2 Hyperlipidemia type: mixed hyperlipidemia ASHD (arteriosclerotic heart disease) I25.10
[2019-12-30 11:25] LABS: Glucose Point of Care 178 mg/dL (70-110)
[2019-12-30] MEDS: enoxaparin 30 mg/0.3 mL Syringe SUBCUT (12:01)
[2019-12-30] MEDS: enoxaparin 120 mg/0.8 mL Syringe SUBCUT (12:01)
[2019-12-30] MEDS: warfarin 5 mg Tablet PO ×2 (12:02→12:12)
[2019-12-30] MEDS: warfarin 3 mg Tablet PO ×2 (12:02→12:12)
[2019-12-30 17:52] LABS: Glucose Point of Care 123 mg/dL (70-110)
== END 2019-12-30 18:45 | disposition home health service (06) | DRG 603 ==
LOC: ER 13:53 → MEDSURG 14:15
PROVIDERS: Nurse Practitioner Family; Admitting Provider Student in an Organized Health Care Education/Training Program; Emergency Provider Family Medicine; Family Provider Family Medicine; PCP Family Medicine; Visit Provider Internal Medicine
DX: L03.116 Cellulitis of left lower limb (principal); Z68.43 Body mass index [BMI] 50.0-59.9, adult; E11.42 Type 2 diabetes mellitus with diabetic polyneuropathy; G47.33 Obstructive sleep apnea (adult) (pediatric); E78.2 Mixed hyperlipidemia; I25.10 Atherosclerotic heart disease of native coronary artery without angina pectoris; Z85.038 Personal history of other malignant neoplasm of large intestine; E03.9 Hypothyroidism, unspecified; E66.9 Obesity, unspecified; Z86.718 Personal history of other venous thrombosis and embolism; Z79.01 Long term (current) use of anticoagulants; Z85.46 Personal history of malignant neoplasm of prostate; Z79.02 Long term (current) use of antithrombotics/antiplatelets; Z79.82 Long term (current) use of aspirin; E78.5 Hyperlipidemia, unspecified; Z87.891 Personal history of nicotine dependence
CPT/HCPCS: 12345; 36415; 36416; 71045; 73630; 73701; 80053; 80202; 82962; 83036; 83605; 85025; 85610; 87040; 87075; 87426; 93005; 93923; 94660; 96372; 96375; 99283; J1650; J1815; J1940; J1956; J2543; J3370; J7030; J7040; J7050; Q9967

== ENCOUNTER → 2020-01-12 09:34 | Outpatient (BNVA) | payer OTHER, SELFPAY | PROVIDERS: Family Provider Family Medicine; PCP Family Medicine; Visit Provider Podiatrist Foot & Ankle Surgery | DX: M79.604 Pain in right leg (principal) | CPT/HCPCS: 73590 ==

== ENCOUNTER 2020-03-25 09:55 | Outpatient (CLI) | payer OTHER, SELFPAY ==
[2020-03-25 12:20] LABS: Basophils # 0.1 10^3/uL (0.0-0.1); Basophils % 0.4 %; Eosinophils # 0.3 10^3/uL (0.0-0.8); Eosinophils % 2.2 %; Hematocrit 49.3 % (42.0-52.0); Hemoglobin 16.7 g/dL (11.7-16.6); Lymphocytes # 2.1 10^3/uL (0.8-4.8); Lymphocytes % 18.4 %; Mean Corpuscular HGB Conc 33.9 g/dL (30.0-36.0); Mean Corpuscular Hemoglobin 31.8 pg (28.0-34.0); Mean Corpuscular Volume 93.9 fL (80-94); Mean Platelet Volume 10.6 fL (7.4-10.4); Monocytes # 1.1 10^3/uL (0.2-0.9); Monocytes % 9.4 %; Neutrophils # 7.92 10^3/uL (1.8-7.7); Neutrophils % 68.6 %; Nucleated Red Blood Cells % 0 %; Platelet Count 233 10^3/cmm (130-400); Red Blood Count 5.25 10^6/uL (4.1-5.3); White Blood Count 11.6 10^3/uL (4.0-10.0)
[2020-03-25 12:47] LABS: Alanine Aminotransferase 37 U/L (0-41); Albumin Level 3.4 g/dL (3.5-5.2); Alkaline Phosphatase 72 IU/L (40-130); Anion Gap 12.6 (5-19); Aspartate Amino Transferase 16 U/L (0-40); Blood Urea Nitrogen 21 mg/dL (8-23); Calcium 9.2 mg/dL (8.5-10.5); Carbon Dioxide 25 mmol/L (22-29); Chloride 101 mmol/L (98-107); Globulin 3.4 g/dL (1.3-4.6); Glucose 141 mg/dL (65-115); Osmolality Calculated 285 mOsm/kg (285-295); Potassium 3.6 mmol/L (3.5-5.1); Sodium 135 mmol/L (136-145); Total Bilirubin 0.6 mg/dL (0.15-1.2); Total Protein 6.8 g/dL (6.6-8.7)
[2020-03-25 12:52] LABS: INR 0.95 (0.8-1.2)
--- NOTE | 2020-03-25 19:10 | ONC CON_ITS ---
Dr. Rodriguez New Patient Note Patient: Gage Hampton Unit #: [id number]: [id number] Dicatated By: Von Rodriguez M.D.Date of Visit: Mar 25, 2020 Onc MED New Patient/Consult Referring Physician: [facility] Chief Complaint: Gliosarcoma of the brain. 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 He had presented initially with a 1-month history of progressive speech difficulty. An MRI on 02/19/2020 showed an heterogeneously enhancing lesion along the posterior middle and inferior temporal gyri extending down to the lateral margin of the atrium measuring 6 x 3 x 3.5 cm. A separate area of enhancement just superior to the dominant lesion measured approximately 9 mm. He had a video conference telemedicine visit with Dr. Юлия Moreira on 02/23/2020. He was then admitted to [facility] and on 03/09/2020 he underwent left temporal craniotomy with resection of temporal parietal-occipital tumor. Grossly it did appear to be a high-grade tumor, but it was able to be removed in entirety. Pathology showed a high-grade glial neoplasm with large areas of vascular and spindle cell proliferation alternating with loosely arranged cellular areas. GFAP and reticulin stains highlighted biphasic morphology created by glial and sarcomatous components. The Ki-67 index was variable but estimated in the 40 to 50% range and more active areas. Beefy p53 was noted to be overexpressed a large subset of neoplastic cells. Molecular testing for IDH mutations, MGMT promoter methylation status, and EGFR amplification studies were requested but not yet reported. His postoperative MRI on 03/10/2020 was felt to be consistent with complete surgical resection. He is seen now for further management. He has not been doing well since the surgery. During the past 4 days he has been having headaches and he has been sleeping quite a bit. He has very limited activity. He does move all of his extremities and he is able to ambulate short distances, but only with assistance. He does require complete assistance for ADLs. I would rate his ECOG score at 3 and his Karnofsky score at 50. He has good appetite. He has not had fever. He has had night sweating, that has been going on for a long time. Family indicates that his vision has gotten worse. He does not have difficulty swallowing. His speech is frequently unintelligible or incoherent. He has been short of breath with effort. He has not had cough. He did complain of chest tightness a couple of days ago. He has had just occasional nausea. Bowel and bladder function have been okay. He has seemed more depressed to the family. Past Medical History: His medical history includes congestive heart failure, coronary artery disease with previous myocardial infarction, history of deep vein thrombosis/pulmonary embolism, history of melanoma, history of prostate cancer, hyperlipidemia, hypertension, hypothyroidism, obstructive sleep apnea, osteoarthritis, and type II diabetes. Past Surgical History: He underwent left temporal craniotomy with resection of temporal parietal-occipital tumor on 03/09/2020. His other surgical/procedural history includes coronary angioplasty/stent placement on 2 occasions, exploratory laparotomy for bowel obstruction due to benign disease in 2011, seed implant for prostate cancer in 2008, and excision of melanoma in 2004. Medications: Aspirin 1 (81 mg) Tablet, chewable Oral daily, Calcium 1 (200 mg) Tablet Oral daily, Cholecalciferol 3 (1000 mg) Capsule Oral daily, Coumadin 3 Tablet (of 2 mg) Oral daily, Cymbalta 2 Tablet (of 30 mg) Capsule Delayed Release Particles Oral daily, Diclofenac Sodium (1 %) Gel (jelly) Topical Take as Directed, Ferrous Gluconate 1 (324 (37.5 fe) mg) Tablet Oral daily, Gabapentin 3 Capsule (of 300 mg) Oral b.i.d., glipiZIDE 1 (10 mg) Tablet Oral daily, hydrALAZINE HCl (10 mg) Tablet Oral Take as Directed, Isosorbide Mononitrate ER 1 (30 mg) Tablet SR 24 HR Oral daily, Jardiance 0.5 Tablet (of 25 mg) Oral daily, Lasix 1 (80 mg) Tablet Oral daily, Levothyroxine Sodium 1 (50 mcg) Tablet Oral every am, Magnesium 1 (84 mg) Capsule Oral daily, Metoprolol Tartrate 1 (50 mg) Tablet Oral b.i.d., Nitroglycerin Tablet, sublingual Sublingual PRN, Plavix 1 (75 mg) Tablet Oral daily, Pravastatin Sodium 1 (40 mg) Tablet Oral daily, Ranexa 1 (500 mg) Tablet SR 12 HR Oral b.i.d. Allergies: No Known Allergies. Social History: Mr. Hampton is . He is retired. He has a fairly long history of smoking, but never heavy. In the past it did include cigarettes but he has mostly smoked cigars. He does not drink alcohol. Family History: Father of liver cancer at age 70. Mother had colon cancer and heart disease. She at age 82. Brother also of cancer. Sister with tuberculosis. There is additional history of diabetes affecting 3 brothers and a sister. Review Of Symptoms: Constitutional - He has very limited activity. He is able to ambulate short distances, but only with assistance. He has good appetite. He has not had fever. He has had night sweating, that has been going on for a long time. ECOG score is 3, Eyes - He recently has had decline in vision, ENMT - He has longstanding hearing loss. No sinus congestion/drainage. No mouth sores. No sore throat or difficulty swallowing, Hematologic/Lymphatic - He has easy bruising, Respiratory - He has shortness of breath with effort. He is on CPAP. No cough. No pleuritic pain or hemoptysis, Cardiovascular - He had some tightness in his chest a couple of days ago. No palpitations, Gastrointestinal - He has occasional nausea. No heartburn or acid reflux. No diarrhea or constipation. No blood in the stool or black stools, Genitourinary (M) - He has some hesitancy. No dysuria or hematuria. No urinary frequency. No urgency or incontinence, Musculoskeletal - He has some joint pain, just chronic, Integumentary - He has a history of melanoma excision, Neurologic - He recently has been having headache and he also complains of dizziness. No numbness or tingling. He has difficulty with speech and communication, Psychiatric - Has been having more depression since the surgery. Vital Signs: Performed on Mar 25, 2020 10:53: 2, 46.38 (HIGH), 2.68 sq.m, 72 in, 99 %, 71 /min, 16 /min, 99/56 mm(hg), 97.2 F (LOW), and 342 lbs (HIGH). Physical Examination: Constitutional - He appears generally weak and he is mostly somnolent, Eyes - Sclerae nonicteric. Conjunctivae clear, ENMT - No lesions noted in the oral cavity, Neck - No mass or thyromegaly, Hematologic/Lymphatic - No cervical, clavicular, or axillary adenopathy, Respiratory - Lungs are clear with diminished air movement bilaterally, Cardiovascular - Heart rhythm is regularwith premature beats. There is no murmur, gallop, or rub noted, Abdomen - Moderately distended but soft. Liver and spleen are not enlarged. There is no abdominal mass or ascites noted and there is no inguinal adenopathy, Back/Spine - No spine or CVA tenderness noted, Extremities - Mild edema, Integumentary - No rashes. No suspicious skin lesions noted, Neurologic - He is somnolent, but arousable. He is able to move all extremities. He does not have consistent response to questions or commands. He is able to talk, but it appears random and sometimes unintelligible. Historic Problem List: 1. Gliosarcoma, WHO grade 4, involving the left temporal lobe. He underwent left temporal craniotomy with resection of temporal parietal-occipital tumor on 03/09/2020. 2. Hypertension. 3. Hyperlipidemia. 4. Type 2 diabetes. 5. Coronary artery disease with previous myocardial infarction. 6. Congestive heart failure. 7. Obstructive sleep apnea. 8. Hypothyroidism. 9. Osteoarthritis. 10. History of deep vein thrombosis/pulmonary embolism. 11. History of prostate cancer, status post seed implant. 12. History of melanoma excision. Problems Addressed with this Encounter and Plan: 1. Gliosarcoma, WHO grade 4, involving the left temporal lobe. He underwent left temporal craniotomy with resection of temporal parietal-occipital tumor on 03/09/2020. Postoperative MRI appeared to be consistent with complete surgical resection. Postoperatively, he has not been doing very well clinically, as he has very poor performance status (ECOG score 3/Karnofsky score 50). He has had excessive somnolence and his speech is still largely unintelligible or incoherent. With age over 70 in the setting of a high-grade glial neoplasm with poor performance status, he is not an appropriate candidate for chemoradiation. Per NCCN guidelines, he would potentially be eligible for hypofractionated radiation alone or for temozolomide monotherapy in the case of an MGMT promoter methylated tumor. The other option would be symptomatic/supportive care only. In discussing the situation with his family, the latter option would be their preference, and on my assessment I think it is an appropriate decision. However, I would first like to give him a trial of steroid therapy, at least least short-term, in case he might have a significant clinical benefit. As such, I will obtain baseline laboratory studies today and I will have him start dexamethasone 4 mg 4 times daily. Family advised that this is going to be problematic with regard to his diabetes. If he does show improvement, we can start tapering the dosage within a few days, and it can be discontinued entirely if he is not getting benefit within that time frame. I have also discussed this with Dr. Singh, who had been scheduled to see him today for radiation oncology consultation, and he is in agreement. 2. Type 2 diabetes. He has previously not been on insulin therapy. Family indicates they have had some difficulties being able to check his blood sugars at home. With his starting on steroid therapy, his blood sugars almost certainly increase. Family is given instructions for checking blood sugars 4 times a day with sliding scale coverage with Humalog. Signed By: Von Rodriguez M.D. <<Signature on File>>
== END 2020-03-25 09:56 | disposition home or self-care (01) ==
PROVIDERS: PCP Family Medicine; Visit Provider Internal Medicine Medical Oncology
DX: C71.2 Malignant neoplasm of temporal lobe (principal); E11.9 Type 2 diabetes mellitus without complications; F17.200 Nicotine dependence, unspecified, uncomplicated; Z86.718 Personal history of other venous thrombosis and embolism; Z79.01 Long term (current) use of anticoagulants; Z79.52 Long term (current) use of systemic steroids; Z79.84 Long term (current) use of oral hypoglycemic drugs
CPT/HCPCS: 36415; 80053; 85025; 85610; 99205